=== PATIENT | female | born 1930 | race Two or more races ===

== ENCOUNTER 2018-01-31 18:26 | Inpatient (IN) | payer MEDICARE, MEDICAID ==
[~2018-01-31] VITALS: Ht 149.9 cm; Wt 56.7 kg
--- NOTE | 2018-01-31 18:57 | NUR ---
PT BIB FAMILY TO ER BED 10. HERE FOR MEDICAL EVAL PRIOR TO POSSIBLE GEROPSYCH ADMISSION. PT'S FAMILY STATES PT HERE FOR INCREASING AGITATION, FREQUENT FALLS. GOWNED AND PLACED ON MONITOR. VSS. AWAITING MD MORALES.
--- NOTE | 2018-01-31 19:09 | NUR ---
DR RKAMER AT BEDSIDE FOR EVAL.
[2018-01-31 19:25] LABS: BASOPHILS % (AUTO) 0.6 % (0.0-2.0); EOSINOPHILS % (AUTO) 0.2 % (0.0-6.0); HEMATOCRIT 42 % (33-45); HEMOGLOBIN 13.9 g/dL (11.5-14.8); LYMPHOCYTES # (AUTO) 1.8 /CMM (0.8-4.8); LYMPHOCYTES % (AUTO) 33.5 % (20.0-44.0); MEAN CORPUSCULAR HEMOGLOBIN 32 PG (26.0-33.0); MEAN CORPUSCULAR HGB CONC 33 g/dl (31.0-36.0); MEAN CORPUSCULAR VOLUME 95 fL (82-100); MONOCYTES # (AUTO) 0.5 /CMM (0.1-1.30); MONOCYTES % (AUTO) 8.3 % (2.0-12.0); NEUTROPHILS # (AUTO) 3.1 /CMM (1.8-8.9); NEUTROPHILS % (AUTO) 57.4 % (43.0-81.0); PLATELET COUNT (AUTO) 258 /CMM (150-450); RDW COEFFICIENT OF VARIATION 12.2 (11.5-15.0); RED BLOOD CELL COUNT(AUTO) 4.41 MIL/uL (4.0-5.2); WHITE BLOOD COUNT (AUTO) 5.4 K/uL (4.3-11.0)
[2018-01-31 19:36] LABS: CALCIUM, SERUM 8.7 mg/dL (8.5-10.1); CARBON DIOXIDE 28 mmol/L (21-32); CHLORIDE 104 mmol/L (98-107); CREATININE 0.7 mg/dL (0.6-1.3); GLUCOSE 144 mg/dL (74-106); POTASSIUM 4.2 mmol/L (3.5-5.1); SODIUM SERUM 141 mmol/L (136-145); UREA NITROGEN, BLOOD 9 mg/dL (7-18)
[2018-01-31 19:50] LABS: ALANINE AMINOTRANSFERASE 33 U/L (12-78); ALBUMIN 3.5 g/dL (3.4-5.0); ALKALINE PHOSPHATASE 88 U/L (46-116); ASPARTATE AMINOTRANSFERASE 24 U/L (15-37); BILIRUBIN,DIRECT 0.1 mg/dL (0.0-0.2); BILIRUBIN,TOTAL 0.2 mg/dL (0.2-1.0); TOTAL PROTEIN, SERUM 7.3 g/dL (6.4-8.2)
[2018-01-31 19:52] LABS: ACETAMINOPHEN 0 ug/ml (10-30); ALCOHOL, BLOOD < 3 mg/dL (0-0); SALICYLATE 1.6 mg/dL (2.8-20.0)
[2018-01-31 20:12] LABS: APPEARANCE,URINE TURBID (CLEAR); BILIRUBIN,URINE NEGATIVE (NEGATIVE); BLOOD, URINE 1+ Ery/uL (NEGATIVE); COLOR,URINE YELLOW (YELLOW); KETONES,URINE NEGATIVE (NEGATIVE); LEUKOCYTE ESTERASE ,URINE NEGATIVE (NEGATIVE); NITRITE, URINE NEGATIVE (NEGATIVE); PROTEIN,URINE NEGATIVE (NEGATIVE); UGLUCOSE NEGATIVE (NEGATIVE); UROBILINOGEN,URINE 0.2 EU/dL (0.2)
[2018-01-31 20:17] LABS: BACTERIA,URINE Many /HPF (None Seen)
[2018-01-31 20:18] LABS: SQUAMOUS EPITHELIAL CELL,UR Few /HPF (None Seen)
--- NOTE | 2018-01-31 20:26 | NUR ---
CALLED MAINTENANCE DIRECTOR FOR EVAL - DAGMARY MINING DETAIL DRAFTSPERSON - ETA 1 HOUR
--- NOTE | 2018-01-31 22:47 | NUR ---
patient transported to nona bed by emt without indicent
[2018-01-31 23:15] VITALS: BP 153/78
--- NOTE | 2018-01-31 23:15 | NUR ---
GPS-RN ADMITTED AN 87-Y/O FEMALE, ADMITTED FROM ER INITIALLY FROM HOME. PT IS ON 5150 HOLD FOR DTS/GD. PER HOLD PT HAS BEEN INCREASINGLY AGITATED AND CONFUSED, DECREASE APPETITE, REFUSING MEDICATION, PATIENT HAS BEEN SUICIDAL RECENTLY. PATIENT WAS THREATENING TO HURT HERSELF WITH A KNIFE AND KICKED HER CAREGIVER OUT, NOT SLEEPING FOR THE PAST FEW DAYS. UPON FACE TO FACE ASSESSMENT, PATIENT APPEARS TO BE ALERT, ORIENTED X1, CONFUSED, DISORGANIZED, COOPERATIVE. ROOM CHECKED AT EACH CARE INTERACTION. NO ACUTE DISTRESS NOTED. CONTINENT OF BOWEL AND BLADDER. AMBULATORY WITH ASSISTANCE. BELONGINGS INVENTORIED AND CHECKED FOR CONTRABAND. REVIEWED PATIENT'S RIGHTS. PT IS UNDER THE PSYCHIATRIC CARE OF DR. MCKEON, ORDERS OBTAINED, AND UNDER THE MEDICAL CARE OF RONAN OSEGUERA NOTIFIED OF PT'S ADMISSION. SKIN BODY ASSESSMENT DONE. MRSA SCREENING DONE. BED LOCKED AND PLACED IN LOWEST POSITION. FALL PRECAUTIONS IMPLEMENTED. WILL CONTINUE TO MONITOR Q15MIN ROUNDS FOR SAFETY AND BEHAVIOR. PATIENT'S DAUGHTER TIFFANIE NEWMAN AT BEDSIDE.
[2018-02-01] MEDS ORDERED: ZOLPIDEM TARTRATE 5 MG TABLET PO PRN
[2018-02-01] MEDS ORDERED: MAG HYDROX/AL HYDROX/SIMETH 30 ML UDC PO PRN
[2018-02-01] MEDS ORDERED: ACETAMINOPHEN 325 MG TABLET PO PRN
[2018-02-01] MEDS ORDERED: MAGNESIUM HYDROXIDE 30 ML UDC PO PRN
[2018-02-01] MEDS ORDERED: [UNRECOGNIZED DRUG - CODE] PO (02:59)
[2018-02-01] MEDS ORDERED: DIVA125C5 PO (02:59)
[2018-02-01] MEDS ORDERED: TRAZ-182 PO (02:59)
[2018-02-01] MEDS ORDERED: LIDO700A30 TP (02:59)
[2018-02-01] MEDS ORDERED: MELA5TAB PO (02:59)
[2018-02-01] MEDS ORDERED: DONE5TAB34 PO (02:59)
[2018-02-01] MEDS ORDERED: CYAN100071 PO (02:59)
[2018-02-01] MEDS ORDERED: RISP0.253 PO (02:59)
[2018-02-01] MEDS ORDERED: SERT25TA5 PO (02:59)
[2018-02-01] MEDS ORDERED: FOLI1TAB16 PO (02:59)
[2018-02-01 06:53] LABS: ALANINE AMINOTRANSFERASE 30 U/L (12-78); ALBUMIN 3.2 g/dL (3.4-5.0); ALKALINE PHOSPHATASE 64 U/L (46-116); ASPARTATE AMINOTRANSFERASE 28 U/L (15-37); BILIRUBIN,TOTAL 0.4 mg/dL (0.2-1.0); CALCIUM, SERUM 8.8 mg/dL (8.5-10.1); CARBON DIOXIDE 28 mmol/L (21-32); CHLORIDE 106 mmol/L (98-107); CREATININE 0.5 mg/dL (0.6-1.3); GLUCOSE 95 mg/dL (74-106); POTASSIUM 4.1 mmol/L (3.5-5.1); SODIUM SERUM 142 mmol/L (136-145); TOTAL PROTEIN, SERUM 6.8 g/dL (6.4-8.2); UREA NITROGEN, BLOOD 7 mg/dL (7-18)
[2018-02-01 06:55] LABS: CHOLESTEROL 140 mg/dL (<200); HDL CHOLESTEROL 58 mg/dL (40-60); LDL 76 mg/dL (0-99); TRIGLYCERIDES 62 mg/dL (30-150)
[2018-02-01 08:00] VITALS: BP 150/86
[2018-02-01] MEDS ORDERED: CYAN500T4 PO (08:20)
[2018-02-01] MEDS: LORAZEPAM 1 MG TABLET PO PRN ×2 (11:35→21:02)
--- NOTE | 2018-02-01 14:34 | NUR ---
CALLED [facility] TO CONTACT [facility] FOR MED RECON. NO CALL BACK YET.
[2018-02-01 16:09] VITALS: BP 140/61
[2018-02-01] MEDS: DONEPEZIL 5 MG TABLET PO SCH (21:02)
[2018-02-01] MEDS: TRAZODONE 50 MG TABLET PO SCH (21:02)
--- NOTE | 2018-02-01 21:04 | NUR ---
LORAZEPAM 1 MG TAB 1 PO GIVEN.
--- NOTE | 2018-02-02 06:36 | NUR ---
VITALS AT 0600 THIS MORNIN/77, 66, 18, 98.5 94% ON ROOM AIR.
[2018-02-02 08:00] VITALS: BP 130/59
[2018-02-02] MEDS: VENLAFAXINE XR 37.5 MG CAP.SR.24H PO SCH (09:02)
--- NOTE | 2018-02-02 14:24 | NUR ---
Initial Discharge Plan: Pt currently resides at [address] [place] [id number] alone. Pt's daughter and DPOA, Ursula White ([phone]) stated that she wants the pt to be placed in a care home facility. The pt also state that she would like to be placed in a facility. SW will work with the pt, the DPOA, and the MD regarding appropriate discharge planning. SW will form a safe and proper discharge.
[2018-02-02 16:00] VITALS: BP 116/63
--- NOTE | 2018-02-02 19:52 | NUR ---
GPS RN NOTE: URINE WBC = 3-5H, GRAM (-)>100,000 CFU/ML, NOTIFIED NEEDLE LOOM WEAVER OUMAR WITH NO NEW ORDER. NO ANTIBIOTIC NEEDED. NOTIFIED FAMILY. WILL CONTINUE TO MONITOR.
[2018-02-02 20:00] VITALS: BP 136/77
[2018-02-02] MEDS: DONEPEZIL 5 MG TABLET PO SCH (22:03)
[2018-02-02] MEDS: TRAZODONE 50 MG TABLET PO SCH (22:04)
[2018-02-03 08:00] VITALS: BP 133/80
[2018-02-03] MEDS: VENLAFAXINE XR 37.5 MG CAP.SR.24H PO SCH (08:25)
[2018-02-03 16:00] VITALS: BP 147/71
[2018-02-03 20:00] VITALS: BP 136/62
[2018-02-03] MEDS: TRAZODONE 50 MG TABLET PO SCH (21:42)
[2018-02-03] MEDS: LORAZEPAM 1 MG TABLET PO PRN (21:42)
[2018-02-03] MEDS: DONEPEZIL 5 MG TABLET PO SCH (21:42)
--- NOTE | 2018-02-03 21:46 | NUR ---
UNABLE TO SLEEP, ANXIOUS, ATIVAN 1 MG TAB PO GIVEN.
[2018-02-04 08:00] VITALS: BP 129/74
[2018-02-04] MEDS: VENLAFAXINE XR 37.5 MG CAP.SR.24H PO SCH (09:29)
[2018-02-04 16:05] VITALS: BP 125/66
[2018-02-04] MEDS: LEVOFLOXACIN (500MG) 500 MG TABLET PO SCH (17:32)
[2018-02-04 20:03] VITALS: BP 131/77
[2018-02-04] MEDS: TRAZODONE 50 MG TABLET PO SCH (21:08)
[2018-02-04] MEDS: DONEPEZIL 5 MG TABLET PO SCH (21:08)
[2018-02-05] MEDS: LORAZEPAM 1 MG TABLET PO PRN ×2 (01:46→20:53)
--- NOTE | 2018-02-05 01:47 | NUR ---
GPS-RN PATIENT IS ANXIOUS, UNABLE TO SLEEP. ADMINISTERED ATIVAN 1MG PO ORDERED. WILL CONTINUE TO MONITOR.
[2018-02-05 08:00] VITALS: BP 125/61
[2018-02-05] MEDS: VENLAFAXINE XR 37.5 MG CAP.SR.24H PO SCH (08:05)
[2018-02-05 16:00] VITALS: BP 113/69
[2018-02-05] MEDS: LEVOFLOXACIN (500MG) 500 MG TABLET PO SCH (16:28)
--- NOTE | 2018-02-05 17:14 | NUR ---
YKB-AS-RKCET: CALLED DR. CARDENAS ABOUT MED RECON TO BE DONE. PENDING RETURN PHONE CALL
[2018-02-05 19:29] VITALS: BP 146/72
[2018-02-05] MEDS: DONEPEZIL 5 MG TABLET PO SCH (20:52)
[2018-02-05] MEDS: TRAZODONE 50 MG TABLET PO SCH (20:53)
[2018-02-06 08:00] VITALS: BP 123/64
[2018-02-06] MEDS: VENLAFAXINE XR 37.5 MG CAP.SR.24H PO SCH (08:18)
--- NOTE | 2018-02-06 10:08 | NUR ---
KEON faxed three referrals to [place] [facility] for the pt. SW sent referrals to [facility] (fax number: [phone]), [facility] (fax number: [phone]) and [facility] (fax number: [phone]).
--- NOTE | 2018-02-06 10:12 | NUR ---
KEON called the pt's daughter and DPOA, Ursula White ([phone]), and was told that she wants the pt to be discharged to [facility]. She also informed the SW that because the pt and her sister are only french speaking that she requests the help of KEON Krishnamurthy, when communicating.
--- NOTE | 2018-02-06 10:14 | NUR ---
KEON faxed a referral to [facility] ([phone]) to the fax number: ([phone]).
--- NOTE | 2018-02-06 11:19 | NUR ---
SW called [facility] ([phone]) and was told that the slot supervisor would call the SW back once she reviews the referral.
--- NOTE | 2018-02-06 14:47 | NUR ---
SW called the pt's daughter and DPOA, Ursula White ([phone]), and informed her that the pt was accepted to [facility], [facility] and [facility]. Pt's DPOA stated that she did not like [facility]'s facility and wants to tour [facility] before making a decision. SW informed her that we are still aiming for [facility] since it is the DPOA's first choice and that she will be informed once the SW gets a response from them.
--- NOTE | 2018-02-06 14:53 | NUR ---
SW called [facility] ([phone]) and spoke to Ursula who stated that they do not have any available beds at this time. The SW stated that she will call back tomorrow to see if they have any females discharging.
[2018-02-06 16:02] VITALS: BP 129/64
[2018-02-06] MEDS: LEVOFLOXACIN (500MG) 500 MG TABLET PO SCH (17:17)
[2018-02-06 20:00] VITALS: BP 147/56
[2018-02-06] MEDS: TRAZODONE 50 MG TABLET PO SCH (21:12)
[2018-02-06] MEDS: DONEPEZIL 5 MG TABLET PO SCH (21:12)
[2018-02-06] MEDS ORDERED: DONEPEZIL 5 MG TABLET PO SCH (22:00)
[2018-02-06 23:00] VITALS: BP 132/62
[2018-02-07 08:00] VITALS: BP 115/62
[2018-02-07] MEDS: VENLAFAXINE XR 37.5 MG CAP.SR.24H PO SCH (09:26)
[2018-02-07] MEDS: LIDOCAINE 5% (PATCH) 1 EA PATCH TP SCH (09:26)
[2018-02-07] MEDS: CYANOCOBALAMIN 500 MCG TABLET PO SCH (09:27)
[2018-02-07] MEDS: FOLIC ACID 1 MG TABLET PO SCH (09:27)
--- NOTE | 2018-02-07 10:51 | NUR ---
KEON called the pt's daughter and DPOA, Ursula White ([phone]), and was informed that she toured [facility] and that she approves of the facility and wants the pt to be discharged there. The SW informed her that the pt was accepted and once the psychiatrist decides to discharge the pt that she will be informed.
--- NOTE | 2018-02-07 10:53 | NUR ---
Pt was accepted to [facility].
[2018-02-07 16:26] VITALS: BP 131/53
[2018-02-07] MEDS: LEVOFLOXACIN (500MG) 500 MG TABLET PO SCH (16:31)
[2018-02-07 19:47] VITALS: BP 137/62
[2018-02-07] MEDS: DONEPEZIL 5 MG TABLET PO SCH (21:12)
[2018-02-07] MEDS: TRAZODONE 50 MG TABLET PO SCH (21:13)
[2018-02-08] MEDS: VENLAFAXINE XR 37.5 MG CAP.SR.24H PO SCH (08:39)
[2018-02-08] MEDS: CYANOCOBALAMIN 500 MCG TABLET PO SCH (08:39)
[2018-02-08] MEDS: FOLIC ACID 1 MG TABLET PO SCH (08:40)
[2018-02-08] MEDS: LIDOCAINE 5% (PATCH) 1 EA PATCH TP SCH (08:40)
--- NOTE | 2018-02-08 11:28 | NUR ---
DISCHARGE NOTE: PATIENT LEFT THE UNIT AT 1115 WITH AMBULANCE SERVICE. PATIENT IS MEDICALLY STABLE. DENIES SI/HI DURING DISCHARGE. PSYCHIATRIST DC HOLD, DC ORDER ,AND CONT MEDS. SUPERVISOR PARK WORKERS AWARE AND CONT MEDS. REPORT GIVEN TO CHAPIS AT [facility]. BELONGINGS GIVEN AND WITH PATIENT. EXIT CARE SIGNED AND EXPLAINED TO. SKIN ASSESSMENT AND PICTURES IN CHART. WRIST BAND CUT OFF PATIENT.
--- NOTE | 2018-02-08 15:25 | NUR ---
Discharge Note: Pt was discharged to [facility] (SNF) [place] [address] [place] [address]; ([phone]). Pt was transported via [facility] (Trip #[id number]) at 11AM. Pts daughter and DPOA, Ursula White ([phone]), was informed of this discharge and approved of it as well as the patient herself. Upon discharge, the patient presented in a euthymic mood with a calm affect. Pt stated that she was excited to be going to a nursing facility where one of the other patients was going too due to her needing a support system. Pt denied suicidal and homicidal ideation upon discharge as well as auditory and visual hallucinations. Pt will be under the care of Dr. Cain, located at [address], [place] [address]; and her search manager, Dr. Emmanuel, located at [address], [address], [place] [address], .
== END 2018-02-08 11:15 | DRG 885 ==
LOC: EDSEX 18:26 → ER 18:26 → GPS 23:07
PROVIDERS: ADMIT Psychiatry & Neurology Psychiatry; ATTEND Psychiatry & Neurology Psychiatry
DX: F33.2 Major depressive disorder, recurrent severe without psychotic features (principal); F02.81 Dementia in other diseases classified elsewhere, unspecified severity, with behavioral disturbance; G93.40 Encephalopathy, unspecified; F29 Unspecified psychosis not due to a substance or known physiological condition; Z73.6 Limitation of activities due to disability; G30.9 Alzheimer's disease, unspecified; Z79.899 Other long term (current) drug therapy; R73.9 Hyperglycemia, unspecified; G31.9 Degenerative disease of nervous system, unspecified; Z81.8 Family history of other mental and behavioral disorders
CPT/HCPCS: 36415; 70450-TC; 80048-TC; 80053-TC; 80061-TC; 80076-TC; 80305; 81000-TC; 84443-TC; 85025-TC; 87081-TC; 87086-TC; 87186-TC; A4606; G0480; Z7610

== ENCOUNTER 2018-07-21 23:09 | Inpatient (IN) | payer MEDICARE, MEDICAID ==
[~2018-07-21] VITALS: Ht 157.5 cm; Wt 60.3 kg
[~2018-07-21 23:09] MED LIST: CYAN500T4 PO; DONE5TAB34 PO; FOLI1TAB16 PO; LIDO700A30 TP; [UNRECOGNIZED DRUG - CODE] PO
[2018-07-21] MEDS ORDERED: VENL37.55 PO (23:21)
[2018-07-21] MEDS ORDERED: DOCU100C36 PO (23:21)
[2018-07-21] MEDS ORDERED: TRAZ-182 PO (23:21)
[2018-07-21] MEDS ORDERED: LORA-258 PO (23:21)
[2018-07-21] MEDS ORDERED: FOLI0.4T2 PO (23:21)
[2018-07-21 23:53] LABS: BASOPHILS # (AUTO) 0.1 /CMM (0.0-0.2); BASOPHILS % (AUTO) 1.1 % (0.0-2.0); EOSINOPHILS % (AUTO) 0.7 % (0.0-6.0); HEMATOCRIT 43 % (33-45); HEMOGLOBIN 14.3 g/dL (11.5-14.8); LYMPHOCYTES # (AUTO) 2.3 /CMM (0.8-4.8); LYMPHOCYTES % (AUTO) 38.2 % (20.0-44.0); MEAN CORPUSCULAR HGB CONC 34 g/dl (31.0-36.0); MEAN CORPUSCULAR VOLUME 95 fL (82-100); MONOCYTES # (AUTO) 0.3 /CMM (0.1-1.30); MONOCYTES % (AUTO) 5.2 % (2.0-12.0); NEUTROPHILS # (AUTO) 3.3 /CMM (1.8-8.9); NEUTROPHILS % (AUTO) 54.8 % (43.0-81.0); PLATELET COUNT (AUTO) 229 /CMM (150-450); RED BLOOD CELL COUNT(AUTO) 4.49 MIL/uL (4.0-5.2); WHITE BLOOD COUNT (AUTO) 6.1 K/uL (4.3-11.0)
[2018-07-21 23:54] LABS: APPEARANCE,URINE SL CLOUDY (CLEAR); BILIRUBIN,URINE NEGATIVE (NEGATIVE); BLOOD, URINE 1+ Ery/uL (NEGATIVE); COLOR,URINE YELLOW (YELLOW); KETONES,URINE NEGATIVE (NEGATIVE); LEUKOCYTE ESTERASE ,URINE 2+ (NEGATIVE); NITRITE, URINE POSITIVE (NEGATIVE); PH,URINE 6.5 (5.0-8.0); PROTEIN,URINE NEGATIVE (NEGATIVE); UGLUCOSE NEGATIVE (NEGATIVE); UROBILINOGEN,URINE 0.2 EU/dL (0.2)
[2018-07-22] LABS: BACTERIA,URINE Moderate /HPF (None Seen); SQUAMOUS EPITHELIAL CELL,UR Few /HPF (None Seen)
[2018-07-22 00:08] LABS: SERUM AMMONIA 15 umol/L (11-32)
[2018-07-22 00:11] LABS: CALCIUM, SERUM 8.8 mg/dL (8.5-10.1); CARBON DIOXIDE 30 mmol/L (21-32); CHLORIDE 104 mmol/L (98-107); CREATININE 0.6 mg/dL (0.6-1.3); GLUCOSE 128 mg/dL (74-106); POTASSIUM 4.3 mmol/L (3.5-5.1); SODIUM SERUM 142 mmol/L (136-145); UREA NITROGEN, BLOOD 10 mg/dL (7-18)
[2018-07-22 00:20] LABS: ALANINE AMINOTRANSFERASE 17 U/L (12-78); ALBUMIN 3.6 g/dL (3.4-5.0); ALCOHOL, BLOOD < 3 mg/dL (0-0); ALKALINE PHOSPHATASE 78 U/L (46-116); ASPARTATE AMINOTRANSFERASE 22 U/L (15-37); BILIRUBIN,DIRECT 0.1 mg/dL (0.0-0.2); BILIRUBIN,TOTAL 0.3 mg/dL (0.2-1.0); THYROID STIMULATING HORMONE 1.719 uIU/mL (0.358-3.74); TOTAL PROTEIN, SERUM 7.2 g/dL (6.4-8.2)
[2018-07-22 00:22] LABS: ACETAMINOPHEN 0 ug/ml (10-30); SALICYLATE 1.9 mg/dL (2.8-20.0)
[2018-07-22] MEDS ORDERED: CEPHALEXIN MONOHYDRATE 500 MG CAPSULE PO ONE (02:14)
[2018-07-22 02:30] VITALS: BP 148/76
[2018-07-22] MEDS ORDERED: MAGNESIUM HYDROXIDE 30 ML UDC PO PRN (02:30)
[2018-07-22] MEDS ORDERED: MAG HYDROX/AL HYDROX/SIMETH 30 ML UDC PO PRN (02:30)
[2018-07-22] MEDS ORDERED: ZOLPIDEM TARTRATE 5 MG TABLET PO PRN (02:30)
[2018-07-22] MEDS ORDERED: ACETAMINOPHEN 325 MG TABLET PO PRN (02:30)
[2018-07-22] MEDS ORDERED: LORAZEPAM 0.5 MG TABLET PO PRN (02:30)
[2018-07-22] MEDS: CEPHALEXIN MONOHYDRATE 250 MG CAPSULE PO SCH ×2 (02:31→11:00)
[2018-07-22 06:46] VITALS: BP 148/76
[2018-07-22 08:00] VITALS: BP 143/58
[2018-07-22] MEDS: FOLIC ACID 1 MG TABLET PO SCH (10:46)
[2018-07-22] MEDS: CYANOCOBALAMIN 500 MCG TABLET PO SCH (10:46)
[2018-07-22] MEDS: CEPHALEXIN MONOHYDRATE 500 MG CAPSULE PO SCH ×3 (11:02→22:36)
[2018-07-22] MEDS: VENLAFAXINE XR 75 MG CAP.SR.24H PO SCH (12:56)
[2018-07-22 16:00] VITALS: BP 111/80
[2018-07-22 20:00] VITALS: BP 153/84
[2018-07-22 20:05] VITALS: BP 153/84
[2018-07-22] MEDS: MEMANTINE HCL 5 MG TABLET PO SCH ×2 (21:00→22:38)
[2018-07-22] MEDS: DONEPEZIL 5 MG TABLET PO SCH ×2 (22:00→22:38)
[2018-07-23 06:37] LABS: BASOPHILS % (AUTO) 0.8 % (0.0-2.0); EOSINOPHILS % (AUTO) 0.8 % (0.0-6.0); HEMATOCRIT 45 % (33-45); HEMOGLOBIN 15.1 g/dL (11.5-14.8); LYMPHOCYTES % (AUTO) 37.4 % (20.0-44.0); MEAN CORPUSCULAR HGB CONC 34 g/dl (31.0-36.0); MEAN CORPUSCULAR VOLUME 95 fL (82-100); MONOCYTES # (AUTO) 0.3 /CMM (0.1-1.30); MONOCYTES % (AUTO) 4.9 % (2.0-12.0); NEUTROPHILS % (AUTO) 56.1 % (43.0-81.0); PLATELET COUNT (AUTO) 266 /CMM (150-450); WHITE BLOOD COUNT (AUTO) 5.3 K/uL (4.3-11.0)
[2018-07-23 06:45] LABS: CHOLESTEROL 181 mg/dL (<200); HDL CHOLESTEROL 59 mg/dL (40-60); LDL 111 mg/dL (0-99); TRIGLYCERIDES 124 mg/dL (30-150)
[2018-07-23 06:47] LABS: ALANINE AMINOTRANSFERASE 18 U/L (12-78); ALBUMIN 3.8 g/dL (3.4-5.0); ALKALINE PHOSPHATASE 72 U/L (46-116); ASPARTATE AMINOTRANSFERASE 23 U/L (15-37); BILIRUBIN,TOTAL 0.7 mg/dL (0.2-1.0); CALCIUM, SERUM 8.7 mg/dL (8.5-10.1); CARBON DIOXIDE 31 mmol/L (21-32); CHLORIDE 104 mmol/L (98-107); CREATININE 0.6 mg/dL (0.6-1.3); GLUCOSE 125 mg/dL (74-106); SODIUM SERUM 142 mmol/L (136-145); TOTAL PROTEIN, SERUM 7.4 g/dL (6.4-8.2); UREA NITROGEN, BLOOD 11 mg/dL (7-18)
[2018-07-23 08:00] VITALS: BP 131/61
[2018-07-23] MEDS: CYANOCOBALAMIN 500 MCG TABLET PO SCH (08:26)
[2018-07-23] MEDS: CEPHALEXIN MONOHYDRATE 500 MG CAPSULE PO SCH ×2 (08:26→21:28)
[2018-07-23] MEDS: MEMANTINE HCL 5 MG TABLET PO SCH ×2 (08:26→21:29)
[2018-07-23] MEDS: FOLIC ACID 1 MG TABLET PO SCH (08:27)
[2018-07-23] MEDS: DOCUSATE SODIUM 100 MG CAPSULE PO SCH (08:29)
[2018-07-23] MEDS: VENLAFAXINE XR 75 MG CAP.SR.24H PO SCH (12:28)
[2018-07-23 16:00] VITALS: BP 123/54
[2018-07-23 20:02] VITALS: BP 144/73
[2018-07-23] MEDS: DONEPEZIL 5 MG TABLET PO SCH (21:29)
[2018-07-23] MEDS: ATORVASTATIN 10 MG TABLET PO SCH (21:29)
[2018-07-24 08:00] VITALS: BP 135/67
[2018-07-24] MEDS: FOLIC ACID 1 MG TABLET PO SCH (09:54)
[2018-07-24] MEDS: CYANOCOBALAMIN 500 MCG TABLET PO SCH (09:55)
[2018-07-24] MEDS: MEMANTINE HCL 5 MG TABLET PO SCH ×2 (09:55→21:13)
[2018-07-24] MEDS: DOCUSATE SODIUM 100 MG CAPSULE PO SCH (09:55)
[2018-07-24] MEDS: CEPHALEXIN MONOHYDRATE 500 MG CAPSULE PO SCH ×2 (09:55→21:13)
[2018-07-24] MEDS: VENLAFAXINE XR 75 MG CAP.SR.24H PO SCH (12:30)
[2018-07-24 16:00] VITALS: BP 149/93
[2018-07-24] MEDS: ATORVASTATIN 10 MG TABLET PO SCH (21:13)
[2018-07-24] MEDS: DONEPEZIL 5 MG TABLET PO SCH (21:13)
[2018-07-24 21:21] VITALS: BP 157/79
[2018-07-25 08:00] VITALS: BP 150/69
[2018-07-25] MEDS: DOCUSATE SODIUM 100 MG CAPSULE PO SCH (09:41)
[2018-07-25] MEDS: FOLIC ACID 1 MG TABLET PO SCH (09:41)
[2018-07-25] MEDS: CEPHALEXIN MONOHYDRATE 500 MG CAPSULE PO SCH ×2 (09:41→21:07)
[2018-07-25] MEDS: MEMANTINE HCL 5 MG TABLET PO SCH ×2 (09:41→21:07)
[2018-07-25] MEDS: CYANOCOBALAMIN 500 MCG TABLET PO SCH (09:41)
[2018-07-25] MEDS: VENLAFAXINE XR 75 MG CAP.SR.24H PO SCH (13:21)
[2018-07-25 16:00] VITALS: BP 126/55
[2018-07-25 20:21] VITALS: BP 125/58
[2018-07-25] MEDS: DONEPEZIL 5 MG TABLET PO SCH (21:07)
[2018-07-25] MEDS: ATORVASTATIN 10 MG TABLET PO SCH (21:07)
[2018-07-26 08:00] VITALS: BP 129/62
[2018-07-26] MEDS: CYANOCOBALAMIN 500 MCG TABLET PO SCH (09:34)
[2018-07-26] MEDS: FOLIC ACID 1 MG TABLET PO SCH (09:34)
[2018-07-26] MEDS: CEPHALEXIN MONOHYDRATE 500 MG CAPSULE PO SCH ×2 (09:34→21:20)
[2018-07-26] MEDS: MEMANTINE HCL 5 MG TABLET PO SCH ×2 (09:34→21:20)
[2018-07-26] MEDS: DOCUSATE SODIUM 100 MG CAPSULE PO SCH (09:34)
[2018-07-26] MEDS: VENLAFAXINE XR 75 MG CAP.SR.24H PO SCH (12:45)
[2018-07-26 16:00] VITALS: BP 133/64
[2018-07-26] MEDS ORDERED: LORAZEPAM 1 MG TABLET PO STA (19:17)
[2018-07-26] MEDS ORDERED: LORAZEPAM 1 MG TABLET SL PRN (19:30)
[2018-07-26 20:00] VITALS: BP 130/70
[2018-07-26] MEDS: DONEPEZIL 5 MG TABLET PO SCH (21:20)
[2018-07-26] MEDS: ATORVASTATIN 10 MG TABLET PO SCH (21:20)
[2018-07-27 08:00] VITALS: BP 126/69
[2018-07-27] MEDS: MEMANTINE HCL 5 MG TABLET PO SCH (09:38)
[2018-07-27] MEDS: CEPHALEXIN MONOHYDRATE 500 MG CAPSULE PO SCH (09:38)
[2018-07-27] MEDS: CYANOCOBALAMIN 500 MCG TABLET PO SCH (09:38)
[2018-07-27] MEDS: DOCUSATE SODIUM 100 MG CAPSULE PO SCH (09:38)
[2018-07-27] MEDS: FOLIC ACID 1 MG TABLET PO SCH (09:38)
== END 2018-07-27 12:00 | DRG 885 ==
LOC: ER 23:10 → GPS 07-22 01:37
PROVIDERS: ADMIT Psychiatry & Neurology Psychiatry; ATTEND Psychiatry & Neurology Psychiatry
DX: F33.2 Major depressive disorder, recurrent severe without psychotic features (principal); G93.41 Metabolic encephalopathy; N39.0 Urinary tract infection, site not specified; F29 Unspecified psychosis not due to a substance or known physiological condition; Z79.899 Other long term (current) drug therapy; G30.9 Alzheimer's disease, unspecified; F02.80 Dementia in other diseases classified elsewhere, unspecified severity, without behavioral disturbance, psychotic disturbance, mood disturbance, and anxiety; F41.9 Anxiety disorder, unspecified; E78.5 Hyperlipidemia, unspecified; D64.9 Anemia, unspecified; B96.89 Other specified bacterial agents as the cause of diseases classified elsewhere; L02.92 Furuncle, unspecified
CPT/HCPCS: 36415; 70450-TC; 71045-TC; 80048-TC; 80053-TC; 80061-TC; 80076-TC; 80305; 81000-TC; 82140-TC; 83605-TC; 84443-TC; 84484-TC; 85025-TC; 85730-TC; 87040-TC; 87081-TC; 87086-TC; 87186-TC; G0480

== ENCOUNTER 2018-10-05 18:53 | Inpatient (IN) | payer MEDICARE, MEDICAID ==
[~2018-10-05] VITALS: Ht 154.9 cm; Wt 57.2 kg
[~2018-10-05 18:53] MED LIST changes: +DOCU100C36 PO; +FOLI0.4T2 PO; -FOLI1TAB16 PO; -LIDO700A30 TP; +LORA-258 PO; +TRAZ-182 PO; +VENL37.55 PO; -[UNRECOGNIZED DRUG - CODE] PO
--- NOTE | 2018-10-05 19:15 | NUR ---
PT BIBFAMILY REQUESTING PSYCH EVAL BEFORE RETURNING TO FACILITY. PER FAMILY, PT LEFT FACILITY WITHOUT NOTICE EARLIER TODAY AND WAS FOUND AT [facility] [place]. PT TELLS FAMILY MEMBERS "I'M GOING TO HURT THE LADY WHEN I GO BACK THERE". PT APPEARS CALM. VITAL SIGNS STABLE. ABLE TO AMBULATE STEADY GAIT. NO ACUTE DISTRESS NOTED AT THIS TIME. FAMILY AT BEDSIDE. WILL CONTINUE TO MONITOR
--- NOTE | 2018-10-05 19:45 | NUR ---
PT RETURNED FROM CT
--- NOTE | 2018-10-05 19:46 | NUR ---
SPOKE WITH ELSIE FROM [facility] [place]. PT HAS BEEN AGGRESSIVE TOWARDS STAFF MEMBERS AND DENYING CARE PAST FEW DAYS. REQUESTING MEDICAL CLEARANCE BEFORE BEING RETURNING TO FACILITY.
--- NOTE | 2018-10-05 19:50 | NUR ---
PT UNABLE TO PROVIDE URINE SAMPLE AT THIS TIME, AWARE
--- NOTE | 2018-10-05 19:59 | NUR ---
COMPANY LABORER AT [facility] FOR BLOOD DRAW
--- NOTE | 2018-10-05 20:06 | NUR ---
PROVIDED PT WITH SANDWICH, SNACKS, AND WATER PER FAMILY REQUEST
[2018-10-05 20:09] LABS: BASOPHILS % (AUTO) 0.4 % (0.0-2.0); HEMATOCRIT 44 % (33-45); LYMPHOCYTES # (AUTO) 1.2 /CMM (0.8-4.8); LYMPHOCYTES % (AUTO) 16.6 % (20.0-44.0); MEAN CORPUSCULAR HGB CONC 34 g/dl (31.0-36.0); MEAN CORPUSCULAR VOLUME 97 fL (82-100); MONOCYTES # (AUTO) 0.5 /CMM (0.1-1.30); MONOCYTES % (AUTO) 6.7 % (2.0-12.0); NEUTROPHILS # (AUTO) 5.6 /CMM (1.8-8.9); NEUTROPHILS % (AUTO) 76.3 % (43.0-81.0); PLATELET COUNT (AUTO) 210 /CMM (150-450); RED BLOOD CELL COUNT(AUTO) 4.59 MIL/uL (4.0-5.2); WHITE BLOOD COUNT (AUTO) 7.4 K/uL (4.3-11.0)
[2018-10-05 20:22] LABS: CALCIUM, SERUM 9.1 mg/dL (8.5-10.1); CARBON DIOXIDE 28 mmol/L (21-32); CHLORIDE 108 mmol/L (98-107); CREATININE 0.7 mg/dL (0.6-1.3); GLUCOSE 118 mg/dL (74-106); SODIUM SERUM 146 mmol/L (136-145); UREA NITROGEN, BLOOD 19 mg/dL (7-18)
[2018-10-05 20:23] LABS: ALCOHOL, BLOOD < 3 mg/dL (0-0)
--- NOTE | 2018-10-05 20:40 | NUR ---
PT ABLE TO AMBULATE TO RESTROOM WITH ASSISTANCE
[2018-10-05 20:47] LABS: THYROID STIMULATING HORMONE 0.602 uIU/mL (0.358-3.74)
--- NOTE | 2018-10-05 20:55 | NUR ---
PT UNABLE TO PROVIDE URINE SAMPLE AT THIS TIME. AWARE. WILL PROVIDE WATER TO PT
--- NOTE | 2018-10-05 21:08 | NUR ---
URINE COLLECTED AND SENT TO LAB
[2018-10-05 21:23] LABS: APPEARANCE,URINE Slightly Cloudy (CLEAR); BILIRUBIN,URINE Negative (NEGATIVE); BLOOD, URINE Moderate Ery/uL (NEGATIVE); COLOR,URINE Yellow (YELLOW); KETONES,URINE >=160 (NEGATIVE); LEUKOCYTE ESTERASE ,URINE Small (NEGATIVE); NITRITE, URINE Positive (NEGATIVE); PH,URINE 5.5 (5.0-8.0); PROTEIN,URINE Trace mg/dl (NEGATIVE); UGLUCOSE Negative (NEGATIVE)
[2018-10-05 21:29] LABS: SQUAMOUS EPITHELIAL CELL,UR Few /HPF (None Seen)
[2018-10-05 21:30] LABS: BACTERIA,URINE 2+ /HPF (None Seen)
--- NOTE | 2018-10-05 22:09 | NUR ---
CALLED CYBER SOFTWARE ENGINEER TELECOMMUNICATIONS PROFESSIONAL YVONNE PATRICIA VOICEMAIL.
--- NOTE | 2018-10-05 22:28 | NUR ---
BELEM PIERCE [id number]
--- NOTE | 2018-10-05 23:11 | NUR ---
PENNIE PATRICIA AT BEDSIDE FOR EVALUATION
--- NOTE | 2018-10-05 23:48 | NUR ---
GAVE REPORT TO HAIDER WALKER FOR GLENN
--- NOTE | 2018-10-06 00:35 | NUR ---
TRANSFERRED PT VIA [facility]
[2018-10-06] MEDS ORDERED: MAGNESIUM HYDROXIDE 30 ML UDC PO PRN (01:00)
[2018-10-06] MEDS ORDERED: MAG HYDROX/AL HYDROX/SIMETH 30 ML UDC PO PRN (01:00)
[2018-10-06] MEDS ORDERED: ACETAMINOPHEN 325 MG TABLET PO PRN (01:00)
[2018-10-06 02:49] VITALS: BP 123/70
--- NOTE | 2018-10-06 03:00 | NUR ---
ADMISSION NOTES: ADMITTED THIS 88 Y/O FEMALE PATIENT ADMIT FROM [facility] ER/INTIALLY FROM NURSING FAC[facility] , PT IS ON 5150 HOLD FOR GRAVELY DISABLE DANGER TO OTHERS , PER HOLD PT. AGGERSSIVE, AGITATED, WANDERED OUT OF HER CARE FACILITY , UPON FACE TO FACE ASSESSMENT PATIENT IS A&O X1 ,2 UNCOOPERTIVE, DISORGINZE, EASILY GETS AGITATED, PT. IS POOR HISTORIAN, POOR INSIGHT ,POOR JUDGEMENT , POOR HYGINE , PT. REFUSED TO TAKE SHOWER AT THIS TIME , AND PT. REFUSED TO SIGN ADMISSION PAPERS ,V/S MD BAO AWARE AND NOTIFIED OF THE ADMISSION, PT. REFUSED SKIN ASSESSMENT , ENCOURAGED PT. VERBALIZED ANY FEELING CONCERN TO STAFF, ORIENT TO UNIT POLICY, WILL CONTINUE TO MONITOR FOR Q15 SAFETY AND BEHAVIOR.
[2018-10-06 08:00] VITALS: BP 124/79
[2018-10-06] MEDS ORDERED: ATOR10TA PO (12:37)
[2018-10-06] MEDS ORDERED: RISP0.253 PO (12:37)
[2018-10-06] MEDS ORDERED: VENL75CA56 PO (12:37)
[2018-10-06] MEDS ORDERED: CLON1TAB12 PO (12:37)
[2018-10-06] MEDS ORDERED: MEMA5TAB PO (12:37)
[2018-10-06] MEDS: DIVALPROEX SODIUM 250 MG TABLET.DR PO SCH ×2 (13:25→21:06)
[2018-10-06 16:00] VITALS: BP 121/75
--- NOTE | 2018-10-06 20:00 | NUR ---
GPS RN NOTES: PT. REFUSED VITAL SIGNS , ENCOURAGED EXPLINED RISKS AND BENEFITS ,BUT STILL REFUSED.
[2018-10-06] MEDS: LORAZEPAM 0.5 MG TABLET PO PRN (20:01)
[2018-10-06] MEDS: CEPHALEXIN MONOHYDRATE 500 MG CAPSULE PO SCH (21:06)
[2018-10-06] MEDS: DONEPEZIL 5 MG TABLET PO SCH (21:06)
[2018-10-06] MEDS: MEMANTINE HCL 5 MG TABLET PO SCH (21:07)
[2018-10-06] MEDS: TRAZODONE 50 MG TABLET PO SCH (21:07)
[2018-10-06] MEDS: ATORVASTATIN 10 MG TABLET PO SCH (21:08)
[2018-10-07] MEDS: ZOLPIDEM TARTRATE 5 MG TABLET PO PRN (01:25)
[2018-10-07 08:00] VITALS: BP 118/60
[2018-10-07 08:54] LABS: BASOPHILS % (AUTO) 0.8 % (0.0-2.0); EOSINOPHILS % (AUTO) 2.4 % (0.0-6.0); HEMATOCRIT 43 % (33-45); HEMOGLOBIN 14.3 g/dL (11.5-14.8); LYMPHOCYTES # (AUTO) 2.2 /CMM (0.8-4.8); LYMPHOCYTES % (AUTO) 42.1 % (20.0-44.0); MEAN CORPUSCULAR HGB CONC 34 g/dl (31.0-36.0); MEAN CORPUSCULAR VOLUME 96 fL (82-100); MONOCYTES # (AUTO) 0.4 /CMM (0.1-1.30); MONOCYTES % (AUTO) 7.3 % (2.0-12.0); NEUTROPHILS # (AUTO) 2.5 /CMM (1.8-8.9); NEUTROPHILS % (AUTO) 47.4 % (43.0-81.0); PLATELET COUNT (AUTO) 214 /CMM (150-450); RED BLOOD CELL COUNT(AUTO) 4.41 MIL/uL (4.0-5.2); WHITE BLOOD COUNT (AUTO) 5.3 K/uL (4.3-11.0)
[2018-10-07 08:58] LABS: CHOLESTEROL 130 mg/dL (<200); HDL CHOLESTEROL 62 mg/dL (40-60); LDL 62 mg/dL (0-99); TRIGLYCERIDES 73 mg/dL (30-150)
[2018-10-07 09:08] LABS: ALANINE AMINOTRANSFERASE 21 U/L (12-78); ALBUMIN 3.7 g/dL (3.4-5.0); ALKALINE PHOSPHATASE 69 U/L (46-116); ASPARTATE AMINOTRANSFERASE 29 U/L (15-37); BILIRUBIN,TOTAL 0.7 mg/dL (0.2-1.0); CALCIUM, SERUM 8.8 mg/dL (8.5-10.1); CARBON DIOXIDE 25 mmol/L (21-32); CHLORIDE 106 mmol/L (98-107); CREATININE 0.7 mg/dL (0.6-1.3); GLUCOSE 139 mg/dL (74-106); POTASSIUM 4.1 mmol/L (3.5-5.1); SODIUM SERUM 143 mmol/L (136-145); TOTAL PROTEIN, SERUM 7.4 g/dL (6.4-8.2); UREA NITROGEN, BLOOD 14 mg/dL (7-18)
[2018-10-07] MEDS: MEMANTINE HCL 5 MG TABLET PO SCH ×2 (09:13→21:00)
[2018-10-07] MEDS: VENLAFAXINE XR 75 MG CAP.SR.24H PO SCH (09:13)
[2018-10-07] MEDS: CEPHALEXIN MONOHYDRATE 500 MG CAPSULE PO SCH ×2 (09:13→21:00)
[2018-10-07] MEDS: DIVALPROEX SODIUM 250 MG TABLET.DR PO SCH ×2 (09:13→21:00)
[2018-10-07 16:00] VITALS: BP 149/77
[2018-10-07 20:13] VITALS: BP 142/72
[2018-10-07] MEDS: TRAZODONE 50 MG TABLET PO SCH (22:00)
[2018-10-07] MEDS: ATORVASTATIN 10 MG TABLET PO SCH (22:00)
[2018-10-07] MEDS: DONEPEZIL 5 MG TABLET PO SCH (22:00)
--- NOTE | 2018-10-07 22:23 | NUR ---
GPS RN NOTES: PATIENT STAYED IN THE ROOM, WHEN OFFERED HER NIGHT TIME MEDICATIONS, PATIENT STARTED SCREAMING AND YELLING IN YORUBA AT THE NURSE. REDIRECTED THE PATIENT WITH THE HELP OF THE BODY AND FRAME TECHNICIAN BUT THE PATIENT SCREAMED EVEN LOUDER AND KEPT SCREAMING "PULICIA". PATIENT REFUSED HER NIGHT TIME MEDICATIONS. PATIENT DOES NOT WANT TO LISTEN TO THE NURSE'S EXPLANATION.WILL MONITOR PATIENT'S MOOD AND BEHAVIOR.
[2018-10-08 08:00] VITALS: BP 148/67
[2018-10-08] MEDS: MEMANTINE HCL 5 MG TABLET PO SCH ×2 (08:30→21:08)
[2018-10-08] MEDS: VENLAFAXINE XR 75 MG CAP.SR.24H PO SCH (08:30)
[2018-10-08] MEDS: DIVALPROEX SODIUM 250 MG TABLET.DR PO SCH ×2 (08:30→21:08)
[2018-10-08] MEDS: CEPHALEXIN MONOHYDRATE 500 MG CAPSULE PO SCH ×2 (08:30→21:08)
--- NOTE | 2018-10-08 10:14 | NUR ---
KEON contacted [facility] [address] [place] [address] and spoke with Ana, higher education administrator who stated pt is able to return once stable for discharge.
--- NOTE | 2018-10-08 11:19 | NUR ---
SW contacted pts daughter Ursula [phone] to discuss pts treatment and discharge plan. Daughter stated that she is unsure if pt will return back to Assisted Living or will need SNF placement as pot has been combative and aggressive with Assisted Living staff and also refusing to take medication. Daughter informed SW that pt needs a psychiatrist and asked of pts current psychiatrist will be willing to continue seeing her outside of the hospital. KEON informed her that Dr. Rhoades was currently on vacation but will be in tomorrow and informed her she would discuss placement and medication compliance with her. Daughter agreed and also stated she was pts conservator SW asked if she was Probate or LPS and daughter stated she would email the forms to KEON to determine which type of conservatorship she had because she was unsure.
--- NOTE | 2018-10-08 11:53 | NUR ---
INITIAL DISCHARGE PLAN: Per daughter Ursula [phone] she wishes for pt to return to [facility] [address] [place], [place] [address] . SW will help form a safe and proper discharge in collaboration with MD and pts daughter.
--- NOTE | 2018-10-08 14:59 | NUR ---
Group Note: SW encouraged the pt to participate in group therapy and she stated that she did not want to and wanted to remain in her room with her roommate.
[2018-10-08 16:00] VITALS: BP 157/94
--- NOTE | 2018-10-08 16:19 | NUR ---
SW contacted pts daughter Ursula [phone] and confirmed SW received DPOA and Probate conservatorship paperwork. SW explained the difference between LPS and Probate conservatorship as daughter kept saying she was pts conservatorship and was able to make decisions for pt including the decision to have pt take her medication. After explaining the to daughter that she was unable to make such decision due to her not being pts LPS conservatorship pt understood the difference and stated she would take oit day by day and determine if pt needs SNF placement or if she will return to the assisted living.
[2018-10-08 20:04] VITALS: BP 123/60
[2018-10-08] MEDS: DONEPEZIL 5 MG TABLET PO SCH (21:08)
[2018-10-08] MEDS: TRAZODONE 50 MG TABLET PO SCH (21:08)
[2018-10-08] MEDS: ATORVASTATIN 10 MG TABLET PO SCH (21:08)
[2018-10-09 08:00] VITALS: BP 102/62
[2018-10-09] MEDS: CEPHALEXIN MONOHYDRATE 500 MG CAPSULE PO SCH ×2 (08:40→20:10)
[2018-10-09] MEDS: VENLAFAXINE XR 75 MG CAP.SR.24H PO SCH (08:40)
[2018-10-09] MEDS: DIVALPROEX SODIUM 250 MG TABLET.DR PO SCH ×2 (08:40→20:10)
[2018-10-09] MEDS: MEMANTINE HCL 5 MG TABLET PO SCH ×2 (08:40→20:13)
[2018-10-09 16:00] VITALS: BP 140/73
--- NOTE | 2018-10-09 16:21 | NUR ---
Group Note: SW encouraged the pt to participate in group therapy and she stated that she did not want to and wanted to remain in her room reading a magazine.
[2018-10-09 19:57] VITALS: BP 151/55
[2018-10-09] MEDS: DONEPEZIL 5 MG TABLET PO SCH (20:10)
[2018-10-09] MEDS: TRAZODONE 50 MG TABLET PO SCH (20:10)
[2018-10-09] MEDS: LORAZEPAM 0.5 MG TABLET PO PRN (20:10)
[2018-10-09] MEDS: ATORVASTATIN 10 MG TABLET PO SCH (20:11)
[2018-10-09] MEDS: risperiDONE 0.25 MG TABLET PO SCH (22:13)
[2018-10-10 08:00] VITALS: BP 142/94
[2018-10-10] MEDS: DIVALPROEX SODIUM 250 MG TABLET.DR PO SCH ×2 (09:20→21:45)
[2018-10-10] MEDS: MEMANTINE HCL 5 MG TABLET PO SCH ×2 (09:20→21:45)
[2018-10-10] MEDS: CEPHALEXIN MONOHYDRATE 500 MG CAPSULE PO SCH ×2 (09:20→21:46)
[2018-10-10] MEDS: VENLAFAXINE XR 75 MG CAP.SR.24H PO SCH (09:21)
--- NOTE | 2018-10-10 14:39 | NUR ---
KEON met with pts daughter Ursula [phone] on this present day and informed her that Dr. Rhoades needs to contact [facility] to ask if she can follow pt as facility already has a psychiatrist that sees pts. Daughter stated that she really wants Dr. Rhoades to see pt outside of the hospital and also stated that she would call the facility to also advocate for Dr. Rhoades to see pt at the facility.
--- NOTE | 2018-10-10 15:45 | NUR ---
Group Note: Pt attended group and was engaged but the pt did not participate. She stated that she did not want to say anything about the topic that was presented even after the SW altered the topic for her.
[2018-10-10 16:00] VITALS: BP 137/61
--- NOTE | 2018-10-10 19:30 | NUR ---
GPS RN NOTE, RECEIVED PATIENT AWAKE AND IN ROOM NO S/S OR COMPLAINTS OF PAIN AT THIS TIME. PATIENT IS DISPLAYING NO S/S OF APPARENT DISTRESS AT THIS TIME. PATIENT BREATHING IS UNLABORED WITH EQUAL RISE AND FALL OF THE CHEST. PATIENT IS ALERT AND ORIENTED X 2 ON ROOM AIR WITH A SPO2 OF 95%. PATIENT IS CONFUSED, DISORGANIZED, ANXIOUS, COOPERATIVE, FOCUSED ON GOING HOME, AND NEEDS REORIENTATION. PATIENT DENIES SUICIDE AND HOMICIDAL IDEATIONS AT THIS TIME. PATIENT ASSISTED WITH TURNING AND REPOSITIONING Q2HR AND PRN FOR COMFORT AND CIRCULATION. PATIENT HAS NO NEEDS AT THIS TIME. PATIENT EDUCATED ON THE USE OF THE CALL GARDNER. PATIENT BED SIDE RAILS ARE UP X 2 FOR SAFETY, BED IS LOCKED AND LOW. WILL CONTINUE TO MONITOR AND MAINTAIN SAFETY Q15 MIN WITH THE HELP OF STAFF.
[2018-10-10 20:06] VITALS: BP 153/74
[2018-10-10] MEDS: TRAZODONE 50 MG TABLET PO SCH (21:45)
[2018-10-10] MEDS: DONEPEZIL 5 MG TABLET PO SCH (21:45)
[2018-10-10] MEDS: risperiDONE 0.25 MG TABLET PO SCH (21:45)
[2018-10-10] MEDS: ATORVASTATIN 10 MG TABLET PO SCH (21:45)
[2018-10-11 08:00] VITALS: BP 147/67
[2018-10-11] MEDS: DIVALPROEX SODIUM 250 MG TABLET.DR PO SCH ×3 (08:53→21:42)
[2018-10-11] MEDS: VENLAFAXINE XR 75 MG CAP.SR.24H PO SCH (08:53)
[2018-10-11] MEDS: CEPHALEXIN MONOHYDRATE 500 MG CAPSULE PO SCH ×3 (08:53→21:42)
[2018-10-11] MEDS: MEMANTINE HCL 5 MG TABLET PO SCH ×3 (08:53→21:42)
--- NOTE | 2018-10-11 15:45 | NUR ---
GROUP NOTE: SW prompted pt to participate in group therapy, pt stated in Cypriot, "I don't want to be in there with those people, leave me alone."
[2018-10-11 16:00] VITALS: BP 121/63
--- NOTE | 2018-10-11 18:12 | NUR ---
RN GPS NOTES PT IN HER ROOM, ALERT, CALM AND COOPERATIVE WITH CARE, AMBULATES WITH STEADY GAIT, INTERACTS WITH STAFF WELL, SAFETY PRECAUTIONS OBSERVED.
[2018-10-11 20:00] VITALS: BP 117/74
[2018-10-11] MEDS: TRAZODONE 50 MG TABLET PO SCH (21:42)
[2018-10-11] MEDS: DONEPEZIL 5 MG TABLET PO SCH (21:43)
[2018-10-11] MEDS: ATORVASTATIN 10 MG TABLET PO SCH (21:43)
[2018-10-11] MEDS: risperiDONE 0.25 MG TABLET PO SCH (21:44)
[2018-10-12 08:00] VITALS: BP 131/69
[2018-10-12 08:30] VITALS: BP 131/69
[2018-10-12] MEDS: DIVALPROEX SODIUM 250 MG TABLET.DR PO SCH ×2 (08:31→20:26)
[2018-10-12] MEDS: CEPHALEXIN MONOHYDRATE 500 MG CAPSULE PO SCH ×2 (08:31→20:26)
[2018-10-12] MEDS: MEMANTINE HCL 5 MG TABLET PO SCH ×2 (08:32→20:26)
[2018-10-12] MEDS: VENLAFAXINE XR 75 MG CAP.SR.24H PO SCH (08:32)
--- NOTE | 2018-10-12 09:25 | NUR ---
PT IN HER ROOM, ALERT, CALM AND COOPERATIVE WITH CARE, AMBULATES WITH STEADY GAIT, INTERACTS WITH STAFF WELL, SAFETY PRECAUTIONS OBSERVED. DAUGHTER CALLED AND WAS CONCERNED THAT MOTHER TAKE A BATH SINCE SHE REFUSED LAST SHIFT. SPOKE WITH PT AND MADE AN AGREEMENT THAT SHE WILL BATHE TODAY WILL FOLLOW UP
--- NOTE | 2018-10-12 14:03 | NUR ---
ATTEMPTED TO GIVE BATH SEVERAL TIMES PT STATES SHE IS HAVING SURGERY TODAY
[2018-10-12 14:18] LABS: BASOPHILS % (AUTO) 0.5 % (0.0-2.0); EOSINOPHILS % (AUTO) 0.9 % (0.0-6.0); HEMATOCRIT 44 % (33-45); HEMOGLOBIN 14.8 g/dL (11.5-14.8); LYMPHOCYTES # (AUTO) 2.6 /CMM (0.8-4.8); MEAN CORPUSCULAR HGB CONC 34 g/dl (31.0-36.0); MEAN CORPUSCULAR VOLUME 97 fL (82-100); MONOCYTES # (AUTO) 0.4 /CMM (0.1-1.30); MONOCYTES % (AUTO) 6.9 % (2.0-12.0); NEUTROPHILS # (AUTO) 2.7 /CMM (1.8-8.9); NEUTROPHILS % (AUTO) 46.7 % (43.0-81.0); PLATELET COUNT (AUTO) 223 /CMM (150-450); WHITE BLOOD COUNT (AUTO) 5.8 K/uL (4.3-11.0)
[2018-10-12 14:27] LABS: ALANINE AMINOTRANSFERASE 23 U/L (12-78); ALBUMIN 3.9 g/dL (3.4-5.0); ALKALINE PHOSPHATASE 76 U/L (46-116); ASPARTATE AMINOTRANSFERASE 17 U/L (15-37); BILIRUBIN,TOTAL 0.4 mg/dL (0.2-1.0); CALCIUM, SERUM 9.3 mg/dL (8.5-10.1); CARBON DIOXIDE 30 mmol/L (21-32); CHLORIDE 105 mmol/L (98-107); CREATININE 0.6 mg/dL (0.6-1.3); GLUCOSE 107 mg/dL (74-106); POTASSIUM 4.5 mmol/L (3.5-5.1); SODIUM SERUM 142 mmol/L (136-145); TOTAL PROTEIN, SERUM 7.6 g/dL (6.4-8.2); UREA NITROGEN, BLOOD 14 mg/dL (7-18)
[2018-10-12 16:00] VITALS: BP 127/74
--- NOTE | 2018-10-12 16:00 | NUR ---
Group Note: Pt attended group and was engaged but the pt did not participate. She was actively listening and was engaged but did not want to make any comments. She stated that she was just there to listen.
[2018-10-12 17:00] VITALS: BP 127/74
[2018-10-12 20:00] VITALS: BP 153/68
[2018-10-12] MEDS: risperiDONE 0.25 MG TABLET PO SCH (20:26)
[2018-10-12] MEDS: ZOLPIDEM TARTRATE 5 MG TABLET PO PRN (20:59)
[2018-10-12] MEDS: DONEPEZIL 5 MG TABLET PO SCH (21:00)
[2018-10-12] MEDS: TRAZODONE 50 MG TABLET PO SCH (21:01)
[2018-10-12] MEDS: ATORVASTATIN 10 MG TABLET PO SCH (21:01)
[2018-10-13 08:00] VITALS: BP 133/66
[2018-10-13] MEDS: DIVALPROEX SODIUM 250 MG TABLET.DR PO SCH ×2 (08:36→21:13)
[2018-10-13] MEDS: CEPHALEXIN MONOHYDRATE 500 MG CAPSULE PO SCH (08:36)
[2018-10-13] MEDS: MEMANTINE HCL 5 MG TABLET PO SCH ×2 (08:37→21:13)
[2018-10-13] MEDS: risperiDONE 0.25 MG TABLET PO SCH ×2 (08:37→21:14)
[2018-10-13] MEDS: VENLAFAXINE XR 75 MG CAP.SR.24H PO SCH ×2 (08:37→08:39)
[2018-10-13 16:00] VITALS: BP 140/64
[2018-10-13 20:00] VITALS: BP 125/64
[2018-10-13] MEDS: DONEPEZIL 5 MG TABLET PO SCH (21:13)
[2018-10-13] MEDS: ATORVASTATIN 10 MG TABLET PO SCH (21:13)
[2018-10-13] MEDS: TRAZODONE 50 MG TABLET PO SCH (21:13)
[2018-10-14 08:00] VITALS: BP 120/60
[2018-10-14] MEDS: DIVALPROEX SODIUM 250 MG TABLET.DR PO SCH ×2 (09:02→21:15)
[2018-10-14] MEDS: risperiDONE 0.25 MG TABLET PO SCH ×2 (09:02→21:14)
[2018-10-14] MEDS: VENLAFAXINE XR 75 MG CAP.SR.24H PO SCH (09:02)
[2018-10-14] MEDS: MEMANTINE HCL 5 MG TABLET PO SCH ×2 (09:03→21:15)
[2018-10-14 16:00] VITALS: BP 158/68
[2018-10-14] MEDS: ATORVASTATIN 10 MG TABLET PO SCH (21:14)
[2018-10-14] MEDS: TRAZODONE 50 MG TABLET PO SCH (21:15)
[2018-10-14] MEDS: DONEPEZIL 5 MG TABLET PO SCH (21:26)
[2018-10-14 21:52] VITALS: BP 127/76
[2018-10-15 09:25] VITALS: BP 137/90
[2018-10-15] MEDS ORDERED: VENLAFAXINE XR 37.5 MG CAP.SR.24H PO SCH (09:56)
[2018-10-15] MEDS: MEMANTINE HCL 5 MG TABLET PO SCH ×2 (10:05→21:00)
[2018-10-15] MEDS: DIVALPROEX SODIUM 250 MG TABLET.DR PO SCH ×2 (10:05→21:00)
[2018-10-15] MEDS: risperiDONE 0.25 MG TABLET PO SCH ×2 (10:05→22:00)
[2018-10-15 16:00] VITALS: BP 135/67
[2018-10-15] MEDS: DONEPEZIL 5 MG TABLET PO SCH (22:00)
[2018-10-15] MEDS: ATORVASTATIN 10 MG TABLET PO SCH (22:00)
[2018-10-16 07:00] LABS: BASOPHILS % (AUTO) 0.5 % (0.0-2.0); EOSINOPHILS % (AUTO) 1.6 % (0.0-6.0); HEMATOCRIT 46 % (33-45); HEMOGLOBIN 15.5 g/dL (11.5-14.8); LYMPHOCYTES # (AUTO) 2.1 /CMM (0.8-4.8); LYMPHOCYTES % (AUTO) 37.1 % (20.0-44.0); MEAN CORPUSCULAR HGB CONC 34 g/dl (31.0-36.0); MEAN CORPUSCULAR VOLUME 97 fL (82-100); MONOCYTES # (AUTO) 0.4 /CMM (0.1-1.30); MONOCYTES % (AUTO) 7.9 % (2.0-12.0); NEUTROPHILS # (AUTO) 2.9 /CMM (1.8-8.9); NEUTROPHILS % (AUTO) 52.9 % (43.0-81.0); PLATELET COUNT (AUTO) 220 /CMM (150-450); RED BLOOD CELL COUNT(AUTO) 4.71 MIL/uL (4.0-5.2); WHITE BLOOD COUNT (AUTO) 5.6 K/uL (4.3-11.0)
[2018-10-16 07:21] LABS: VALPROIC ACID 29 ug/mL (50-100)
[2018-10-16 07:29] LABS: ALANINE AMINOTRANSFERASE 34 U/L (12-78); ALKALINE PHOSPHATASE 77 U/L (46-116); ASPARTATE AMINOTRANSFERASE 35 U/L (15-37); BILIRUBIN,TOTAL 0.7 mg/dL (0.2-1.0); CALCIUM, SERUM 9.2 mg/dL (8.5-10.1); CARBON DIOXIDE 27 mmol/L (21-32); CHLORIDE 105 mmol/L (98-107); CREATININE 0.6 mg/dL (0.6-1.3); GLUCOSE 115 mg/dL (74-106); POTASSIUM 4.1 mmol/L (3.5-5.1); SODIUM SERUM 142 mmol/L (136-145); TOTAL PROTEIN, SERUM 7.9 g/dL (6.4-8.2); UREA NITROGEN, BLOOD 15 mg/dL (7-18)
[2018-10-16 08:00] VITALS: BP 153/55
[2018-10-16] MEDS ORDERED: risperiDONE 0.25 MG TABLET PO SCH (09:00)
[2018-10-16] MEDS: MEMANTINE HCL 5 MG TABLET PO SCH ×2 (09:08→21:14)
[2018-10-16] MEDS: DIVALPROEX SODIUM 250 MG TABLET.DR PO SCH ×3 (09:08→16:19)
[2018-10-16] MEDS: risperiDONE 0.25 MG TABLET PO SCH ×2 (12:16→21:16)
[2018-10-16 16:00] VITALS: BP 129/64
[2018-10-16 20:00] VITALS: BP 113/70
[2018-10-16] MEDS: DONEPEZIL 5 MG TABLET PO SCH (21:15)
[2018-10-16] MEDS: ATORVASTATIN 10 MG TABLET PO SCH (21:15)
[2018-10-17 08:00] VITALS: BP 115/57
[2018-10-17] MEDS: DIVALPROEX SODIUM 250 MG TABLET.DR PO SCH ×3 (08:43→16:25)
[2018-10-17] MEDS: MEMANTINE HCL 5 MG TABLET PO SCH ×2 (08:43→21:56)
[2018-10-17] MEDS: risperiDONE 0.25 MG TABLET PO SCH ×3 (08:43→21:56)
--- NOTE | 2018-10-17 15:07 | NUR ---
KEON contacted pts daughter Ursula [phone] and informed her pt will be discharged on Monday10/19/18, SW attempted to coordinate transportation and daughter stated she would not pick pt up due to her aggressive behavior. Daughter asked SW to arrange transportation with assisted living.
--- NOTE | 2018-10-17 15:13 | NUR ---
KEON contacted [facility] [address], [place] [id number] and spoke with Dina who stated she will coordinate poultry picker for pt for Monday10/19/18. Dina stated she would contact KEON to confirm a poultry picker time.
--- NOTE | 2018-10-17 15:23 | NUR ---
GROUP NOTE: SW prompted pt to attend group, pt was laying down in bed with her whole body covered and stated, "I don't want to," in Maori and closed her eyes. Pt appeared to be sleeping.
--- NOTE | 2018-10-17 15:24 | NUR ---
KEON contacted pts daughter Ursula [phone] and informed her [facility] will be arranging transportation for pt. Ursula also asked SW not to provide any discharge information to her siblings. KEON informed her that she has not received a call from any other family member.
[2018-10-17 16:00] VITALS: BP 151/63
[2018-10-17 20:00] VITALS: BP 127/60
[2018-10-17 20:18] VITALS: BP 127/60
[2018-10-17] MEDS: ATORVASTATIN 10 MG TABLET PO SCH (21:56)
[2018-10-17] MEDS: DONEPEZIL 5 MG TABLET PO SCH (21:56)
[2018-10-17] MEDS: ZOLPIDEM TARTRATE 5 MG TABLET PO PRN (22:52)
[2018-10-18] MEDS: LORAZEPAM 0.5 MG TABLET PO PRN (00:06)
[2018-10-18 08:24] VITALS: BP 131/82
[2018-10-18] MEDS: risperiDONE 0.25 MG TABLET PO SCH ×3 (08:43→21:33)
[2018-10-18] MEDS: DIVALPROEX SODIUM 250 MG TABLET.DR PO SCH ×3 (08:43→16:24)
[2018-10-18] MEDS: MEMANTINE HCL 5 MG TABLET PO SCH ×2 (08:43→21:32)
--- NOTE | 2018-10-18 10:51 | NUR ---
KEON contacted [facility] [address] [place] [address] and spoke with Heike who stated pt will be picked up at 10:00am by facility transport. Heike also requested medications and prescription along with clinical information be faxed to [phone].
--- NOTE | 2018-10-18 10:53 | NUR ---
KEON contacted pts daughter Ursula [phone] and informed her [facility] will be [facility] pt up at 10:00am Daughter agreed.
[2018-10-18 16:24] VITALS: BP 140/59
[2018-10-18 20:05] VITALS: BP 144/97
[2018-10-18] MEDS: DONEPEZIL 5 MG TABLET PO SCH (21:32)
[2018-10-18] MEDS: ATORVASTATIN 10 MG TABLET PO SCH (21:32)
[2018-10-19] MEDS: LORAZEPAM 0.5 MG TABLET PO PRN (01:11)
[2018-10-19 08:00] VITALS: BP 128/62
[2018-10-19] MEDS: DIVALPROEX SODIUM 250 MG TABLET.DR PO SCH (08:14)
[2018-10-19] MEDS: MEMANTINE HCL 5 MG TABLET PO SCH (08:14)
[2018-10-19] MEDS: risperiDONE 0.25 MG TABLET PO SCH (08:14)
--- NOTE | 2018-10-19 08:51 | NUR ---
DISCHARGE NOTE: Pt will be discharged at 10:00am to [facility] [address] [place] [address] . Pts daughter Ursula [phone] has been notified and agrees with discharge. KEON faxed clinical information and medication list to Alessandra, fleet administrator [phone]. Pts mood was euthymic with congruent affect. Pt denied suicidal/homicidal ideation and denied visual/auditory hallucinations. Pt will be under the care of Psychiatrist: Dr. Ish Izaguirre Address: [address], [place] [address] and Float Builder: Dr. Amanda Heath Address: [address] [address] . The multidisciplinary exit care form was done, printed, signed, and given to the patient.
--- NOTE | 2018-10-19 10:30 | NUR ---
GPS/RN PT DISCHARGED TO [facility] [address] [place], [place] [address] VIA PRIVATE TRANSPORTATION FROM FACILITY. PT IS AMBULATORY VSS NO DISTRESS/PAIN REPORTED NO SI OR HI AT THE TIME OF DISCHARGE, PROPERTY RETURNED, ISD BAND REMOVED. FULL SKIN ASSESSMENT WAS REFUSED. PT REFUSED TO SIGN DISCHARGE FORMS/EXIT CARE WELL. PRESCRIPTIONS FAXED TO THE FACILITY. PT WAS ACCOMPANIED TO THE CAR .
== END 2018-10-19 10:30 | DRG 885 ==
LOC: ER 18:55 → GPS 10-06 00:09
PROVIDERS: ADMIT Psychiatry & Neurology Psychiatry; ATTEND Nurse Practitioner Acute Care
DX: F25.0 Schizoaffective disorder, bipolar type (principal); F01.50 Vascular dementia, unspecified severity, without behavioral disturbance, psychotic disturbance, mood disturbance, and anxiety; N17.0 Acute kidney failure with tubular necrosis; G93.41 Metabolic encephalopathy; E87.0 Hyperosmolality and hypernatremia; N39.0 Urinary tract infection, site not specified; F29 Unspecified psychosis not due to a substance or known physiological condition; B96.20 Unspecified Escherichia coli [E. coli] as the cause of diseases classified elsewhere; E66.01 Morbid (severe) obesity due to excess calories; E86.1 Hypovolemia; F39 Unspecified mood [affective] disorder; Z73.6 Limitation of activities due to disability; L72.0 Epidermal cyst
CPT/HCPCS: 36415; 70450-TC; 80048-TC; 80053-TC; 80061-TC; 80164-TC; 80305; 81000-TC; 84443-TC; 84484-TC; 85025-TC; 85730-TC; 87081-TC; 87086-TC; 87186-TC; G0480

== ENCOUNTER 2018-10-20 22:46 | Inpatient (IN) | payer MEDICARE, MEDICAID ==
[~2018-10-20] VITALS: Ht 157.5 cm; Wt 54.4 kg
[~2018-10-20 22:46] MED LIST changes: +ATOR10TA PO; -CYAN500T4 PO; -DOCU100C36 PO; -FOLI0.4T2 PO; -LORA-258 PO; +MEMA5TAB PO; -TRAZ-182 PO; -VENL37.55 PO
--- NOTE | 2018-10-20 22:55 | NUR ---
DEANN FONTENOT FROM BOARD AND CARE ON A [place]. LETHARGIC, HARD TO ARROUSE. BREATHING EVEN AND UNLABORED. BROUGHT IN FOR ALTERED MENTAL STATUS THAT USUAL SINCE THIS MORNING. REPORT RECEIVED FROM AMBULANCE THAT PT TOOK A MEDICATION FROM THE [facility] WHICH MADE HER LETHARGIC. MEDLIST WITH PT AND NOTED TO TAKING CLONAZEPAM, RISPERIDONE, AND TRAZADONE. MD AT BEDSIDE. AWAITING ORDERS.
[2018-10-21] MEDS ORDERED: IV NS 0.9% 1,000 ML BAG IV ONE
--- NOTE | 2018-10-21 | NUR ---
IV LINE OBTAINED ON L AC 20G. BLOOD DRAWN AND GIVEN TO LABTECH AT BEDSIDE. EKG IS BEING DONE WELL.
--- NOTE | 2018-10-21 00:02 | NUR ---
TIFFANIE CHAVEZ ([facility]) [phone] CALL FOR ANY UPDATES
[2018-10-21 00:05] LABS: BASOPHILS % (AUTO) 0.7 % (0.0-2.0); EOSINOPHILS % (AUTO) 1.6 % (0.0-6.0); HEMATOCRIT 42 % (33-45); HEMOGLOBIN 13.9 g/dL (11.5-14.8); LYMPHOCYTES # (AUTO) 2.6 /CMM (0.8-4.8); LYMPHOCYTES % (AUTO) 41.7 % (20.0-44.0); MEAN CORPUSCULAR HGB CONC 33 g/dl (31.0-36.0); MEAN CORPUSCULAR VOLUME 97 fL (82-100); MONOCYTES # (AUTO) 0.5 /CMM (0.1-1.30); PLATELET COUNT (AUTO) 178 /CMM (150-450); RED BLOOD CELL COUNT(AUTO) 4.32 MIL/uL (4.0-5.2); WHITE BLOOD COUNT (AUTO) 6.3 K/uL (4.3-11.0)
[2018-10-21 00:16] LABS: CALCIUM, SERUM 8.4 mg/dL (8.5-10.1); CARBON DIOXIDE 29 mmol/L (21-32); CHLORIDE 106 mmol/L (98-107); CREATININE 0.8 mg/dL (0.6-1.3); GLUCOSE 103 mg/dL (74-106); SODIUM SERUM 142 mmol/L (136-145); UREA NITROGEN, BLOOD 20 mg/dL (7-18)
--- NOTE | 2018-10-21 00:17 | NUR ---
PT BEING WHEELED TO RADIOLOGY ON [facility]
[2018-10-21 00:29] LABS: THYROID STIMULATING HORMONE 0.965 uIU/mL (0.358-3.74)
[2018-10-21 00:30] LABS: ALANINE AMINOTRANSFERASE 28 U/L (12-78); ALBUMIN 3.3 g/dL (3.4-5.0); ALCOHOL, BLOOD < 3 mg/dL (0-0); ALKALINE PHOSPHATASE 77 U/L (46-116); ASPARTATE AMINOTRANSFERASE 26 U/L (15-37); BILIRUBIN,DIRECT 0.1 mg/dL (0.0-0.2); BILIRUBIN,TOTAL 0.4 mg/dL (0.2-1.0); TOTAL PROTEIN, SERUM 6.2 g/dL (6.4-8.2)
--- NOTE | 2018-10-21 00:32 | NUR ---
PT BACK FROM CT.
[2018-10-21 00:35] LABS: ACETAMINOPHEN 0 ug/ml (10-30)
--- NOTE | 2018-10-21 01:43 | NUR ---
PT ASSIGNED TO 324-2
--- NOTE | 2018-10-21 02:24 | NUR ---
CALLED FOR DR GARCIA. FELY LOMAX TO REPORT
--- NOTE | 2018-10-21 02:45 | NUR ---
PT TRANSPORTED TO UNIT WITH ACLS PROTOCOL EMT AND RN AT BEDSIDE
[2018-10-21 03:00] VITALS: BP 126/72
--- NOTE | 2018-10-21 03:00 | NUR ---
STATE COMPTROLLERPERFORMANCE TESTER NOTES Patient came to unit via gurney. Patient is alert, oriented x 1-2, speaks primarily in khmer but able to understand simple montenegrin. Tele monitor in place- SR 61. Patient still sleepy but easily arousable and able to follow simple commands. IV access on LAC g#20 intact and patent with no signs of infiltration. Skin assessment done. Multiple bruises on R) arm, chest area and Left leg- pictures attached to chart. Oriented to call light- placed within easy reach. Bed in low, locked position, bed alarm on. Encouraged to call for assistance. Will continue to monitor accordingly
[2018-10-21] MEDS ORDERED: TRAZ-182 PO (03:26)
[2018-10-21] MEDS ORDERED: VENL75TA4 PO (03:26)
[2018-10-21] MEDS ORDERED: RISP0.5T20 PO (03:26)
[2018-10-21] MEDS ORDERED: CLON1TAB12 PO (03:26)
[2018-10-21] MEDS ORDERED: VENL37.510 PO (03:26)
[2018-10-21 04:00] VITALS: BP 126/72
[2018-10-21] MEDS ORDERED: IV D5/0.45 NACL 1,000 ML IV PRN (05:13)
[2018-10-21] MEDS ORDERED: Z GUARD REMEDY 2 OZ OINT TP PRN (05:30)
[2018-10-21] MEDS ORDERED: HYDROCODONE/APAP 5/325MG 1 EACH TABLET PO PRN (05:30)
[2018-10-21] MEDS ORDERED: MAGNESIUM HYDROXIDE 30 ML UDC PO PRN (05:30)
[2018-10-21] MEDS ORDERED: ACETAMINOPHEN 325 MG TABLET PO PRN (05:30)
[2018-10-21] MEDS ORDERED: ONDANSETRON HCL/PF 4 MG/2 ML VIAL IVP PRN (05:30)
[2018-10-21] MEDS ORDERED: MAG HYDROX/AL HYDROX/SIMETH 30 ML UDC PO PRN (05:30)
--- NOTE | 2018-10-21 07:14 | NUR ---
TUMOR REGISTRAR CLOSING NOTES Patient still sleeping in bed, appears comfortable. Breathing even and unlabored. Not in any distress. Peripheral IV infusing at 75mL/hr. Tele monitor in place- sinus aniya 52. All needs attended to and anticipated. Will endorse GLENN to oncoming RN
[2018-10-21] MEDS: PANTOPRAZOLE 40 MG TABLET.DR PO SCH (07:30)
--- NOTE | 2018-10-21 07:30 | NUR ---
TELE/RN NOTE THE PATIENT IS RECEIVED IN BED. PATIENT SLEEPY BUT AROUSABLE. SHE IS ABLE TO MAKE NEEDS KNOWN VERBALLY. IN ROOM AIR AND DENIES SOB. RESPIRATION REGULAR AND UNLABORED. DENIES PAIN. EXTERNAL TELE BOX READING IS S. BRADYCARDIA 55. LAC G 20 PATENT AND D5 1/2 NS INFUSING AT 75ML/HR AND NO S/S INFILTRATION NOTED. BED LOW AND LOCKED. SIDE RAILS UP X3. CALL LIGHT WITHIN REACH. WILL CONTINUE TO MONITOR.
[2018-10-21 08:00] VITALS: BP 98/48
[2018-10-21 08:23] VITALS: BP 98/48
[2018-10-21] MEDS: ENOXAPARIN SODIUM 40 MG/0.4 ML DISP.SYRIN SQ SCH (09:07)
--- NOTE | 2018-10-21 12:03 | NUR ---
MS/RN NOTE RECEIVED REGULAR DIET ORDER FROM DR SR. NOTED AND CARRIED OUT.
--- NOTE | 2018-10-21 13:40 | NUR ---
MS/RN NOTE SITTER ORDER PER DR CORDERO. NOTED AND CARRIED OUT.
[2018-10-21] MEDS: DIVALPROEX SODIUM 125 MG CAP.SPRINK PO SCH ×2 (15:00→17:45)
[2018-10-21] MEDS: risperiDONE 0.25 MG TABLET PO SCH ×2 (15:00→17:45)
--- NOTE | 2018-10-21 15:00 | NUR ---
MS/RN NOTE RECEIVED A CALL FROM [facility] ADMITTING DEPARTMENT AND WAS TOLD THAT A CLINICIAN WOULD COME 10/22/18 TO ASSESS THE PATIENT. CHARGE NURSE IS MADE AWARE.
[2018-10-21 16:00] VITALS: BP 106/60
--- NOTE | 2018-10-21 18:35 | NUR ---
MS/RN CLOSING NOTE THE PATIENT ALERT AND ORIENTED X1. REDIRECTION AND REORIENTATION PROVIDED. THE PATIENT IN ROOM AIR AND SATURATION IS AT 96%. DENIES SOB. RESPIRATION REGULAR AND UNLABORED. DENIES PAIN. THE PATIENT IN NO APPARENT DISTRESS. LAC G 20 PATENT AND IV FLUID INFUSING PER ORDER. NO S/S INFILTRATION NOTED. BED LOW AND LOCKED. SIDE RAILS UP X3. SITTER AT THE BED SIDE. CALL LIGHT WITHIN REACH. WILL ENDORSE TO GEAR GRINDING MACHINE OPERATOR.
--- NOTE | 2018-10-21 19:12 | NUR ---
MS/RN OPENING NOTES RECEIVED PATIENT IN BED, AWAKE, ALERT X2, ABLE TO VERBALIZE NEEDS IN IRISH BUT REPORTED WANT TO GET HOLD OF DAUGHTER . RECEIVED REPORT FROM AM RN FOR GLENN, WILL MONITOR. ON ROOM AIR REQUIRE SITTER PER MD, FOR SAFETY. BED LOCKED CALL LIGHTS WITHIN REACH, WILL MONITOR. RESPIRATIONS EVEN AND UNLABORED.SKIN WARM TO TOUCH.OFFERED FLUIDS AND SNACKS.
[2018-10-21 20:00] VITALS: BP 129/67
--- NOTE | 2018-10-21 20:09 | NUR ---
MS/RN NOTES PATIENT REMOVED IV SITE WAS DISLODGE, TO REINSERT, PATIENT AGREED. WILL MONITOR.
--- NOTE | 2018-10-21 20:24 | NUR ---
MS/RN NOTES PATIENT OFFERED AND PROVIDED SNACKS. SITTER AT BEDSIDE, REFUSED TO HAVE IV REINSERTION AT THIS TIME, WILL TRY AGAIN. DAUGHTER AWARE PATIENT REQUESTING DAUGHTER VICTORIANO. CONTACTED DAUGHTER DALILA MORENO AWARE.
[2018-10-21] MEDS ORDERED: ATORVASTATIN 10 MG TABLET PO SCH (22:00)
--- NOTE | 2018-10-22 00:30 | NUR ---
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 WILL MONITOR. Addendum: 10/22/18 at 0104 by JOHN VARMA RN PLS DISREGARD NOTES FOR DIFFERENT PATIENT
[2018-10-22 06:26] LABS: BASOPHILS % (AUTO) 0.4 % (0.0-2.0); EOSINOPHILS % (AUTO) 1.3 % (0.0-6.0); HEMATOCRIT 41 % (33-45); HEMOGLOBIN 13.6 g/dL (11.5-14.8); LYMPHOCYTES # (AUTO) 1.7 /CMM (0.8-4.8); LYMPHOCYTES % (AUTO) 30.5 % (20.0-44.0); MEAN CORPUSCULAR HGB CONC 34 g/dl (31.0-36.0); MEAN CORPUSCULAR VOLUME 97 fL (82-100); MONOCYTES # (AUTO) 0.5 /CMM (0.1-1.30); MONOCYTES % (AUTO) 8.3 % (2.0-12.0); NEUTROPHILS # (AUTO) 3.4 /CMM (1.8-8.9); NEUTROPHILS % (AUTO) 59.5 % (43.0-81.0); PLATELET COUNT (AUTO) 188 /CMM (150-450); RED BLOOD CELL COUNT(AUTO) 4.17 MIL/uL (4.0-5.2); WHITE BLOOD COUNT (AUTO) 5.7 K/uL (4.3-11.0)
--- NOTE | 2018-10-22 06:44 | NUR ---
MS/RN NOTES PATIENT MONITORED FOR ANY CHANGES, KEPT COMFROTABLE, BED LOCKED, CALL LIGHTS WITHIN REACH. WILL MONITOR. BED LOCKED .
[2018-10-22 06:45] LABS: CALCIUM, SERUM 7.8 mg/dL (8.5-10.1); CARBON DIOXIDE 28 mmol/L (21-32); CHLORIDE 111 mmol/L (98-107); CREATININE 0.6 mg/dL (0.6-1.3); GLUCOSE 102 mg/dL (74-106); MAGNESIUM 2.3 mg/dL (1.8-2.4); PHOSPHORUS 3.7 mg/dL (2.5-4.9); POTASSIUM 3.8 mmol/L (3.5-5.1); SODIUM SERUM 146 mmol/L (136-145); UREA NITROGEN, BLOOD 10 mg/dL (7-18)
--- NOTE | 2018-10-22 07:20 | NUR ---
MS/RN OPENING NOTE THE PATIENT ALERT AND ORIENTED X1. ABLE TO MAKE NEEDS KNOWN VERBALLY. THE PATIENT VERBALIZES WANTING TO GO HOME. DENIES PAIN. RESPIRATION REGULAR AND UNLABORED. IN ROOM AIR AND DENIES SOB. PATIENT HAS NO IV AND DOES NOT WANT TO HAVE IT. DR SR IS MADE AWARE. SITTER AT THE BEDSIDE. BED LOW AND LOCKED. SIDE RAILS UP X2. CALL LIGHT WITHIN REACH. WILL CONTINUE TO MONITOR.
[2018-10-22] MEDS: ENOXAPARIN SODIUM 40 MG/0.4 ML DISP.SYRIN SQ SCH (08:05)
[2018-10-22] MEDS: PANTOPRAZOLE 40 MG TABLET.DR PO SCH (08:05)
[2018-10-22] MEDS: DIVALPROEX SODIUM 125 MG CAP.SPRINK PO SCH ×3 (08:05→17:47)
[2018-10-22] MEDS: risperiDONE 0.25 MG TABLET PO SCH ×3 (08:05→17:47)
[2018-10-22 08:42] VITALS: BP 120/58
[2018-10-22 16:56] VITALS: BP 99/52
--- NOTE | 2018-10-22 18:56 | NUR ---
MS/RN NOTE PATIENT IS GIVEN DISCHARGE EDUCATION. GPS RN MEENAKSHI IS GIVEN REPORT. DAUGHTER TIFFANIE IS AMDE AWARE OF DISCHARGE.
[2018-10-23] MEDS ORDERED: PANT40TA2 PO (07:34)
[2018-10-23] MEDS ORDERED: DIVA125C5 PO (07:34)
[2018-10-23] MEDS ORDERED: MAGN400O6 PO (07:34)
[2018-10-23] MEDS ORDERED: ALLA266C2 TP (07:34)
[2018-10-23] MEDS ORDERED: ONDA4VIA52 IVP (07:34)
[2018-10-23] MEDS ORDERED: HYDR-4384 PO (07:34)
[2018-10-23] MEDS ORDERED: ENOX40DI SQ (07:34)
[2018-10-23] MEDS ORDERED: ACET-868 PO (07:34)
[2018-10-23] MEDS ORDERED: MAG30ORA PO (07:34)
== END 2018-10-22 18:35 | DRG 885 ==
LOC: ER 22:51 → TELE 10-21 02:26 → MED 10-21 08:15
PROVIDERS: ADMIT Family Medicine; ATTEND Family Medicine
DX: F29 Unspecified psychosis not due to a substance or known physiological condition (principal); G93.41 Metabolic encephalopathy; E44.1 Mild protein-calorie malnutrition; E86.0 Dehydration; G30.9 Alzheimer's disease, unspecified; F02.80 Dementia in other diseases classified elsewhere, unspecified severity, without behavioral disturbance, psychotic disturbance, mood disturbance, and anxiety; F01.50 Vascular dementia, unspecified severity, without behavioral disturbance, psychotic disturbance, mood disturbance, and anxiety; F41.9 Anxiety disorder, unspecified; F32.9 Major depressive disorder, single episode, unspecified; Z86.59 Personal history of other mental and behavioral disorders; Z79.899 Other long term (current) drug therapy; R79.89 Other specified abnormal findings of blood chemistry; F25.0 Schizoaffective disorder, bipolar type
CPT/HCPCS: 36415; 70450-TC; 71045-TC; 80048-TC; 80076-TC; 83605-TC; 83735-TC; 84100-TC; 84443-TC; 84484-TC; 85025-TC; 85730-TC; 87040-TC; 87081-TC; 97116-TC; 97530-TC; G0378; G0480; J1650; J3490; J7030

== ENCOUNTER 2018-10-22 19:43 | Inpatient (IN) | payer MEDICARE, MEDICAID ==
[~2018-10-22] VITALS: Ht 149.9 cm; Wt 54.4 kg
[~2018-10-22 19:43] MED LIST changes: +CLON1TAB12 PO; +RISP0.5T20 PO; +TRAZ-182 PO; +VENL37.510 PO; +VENL75TA4 PO
[2018-10-22 20:23] VITALS: BP 113/54
--- NOTE | 2018-10-22 21:00 | NUR ---
GPS RN SURGERY NOTES: ADMITTED AN 88YO FEMALE FROM MED SUR[facility] ON 5150 HOLD FOR GRAVE DISABILITY. PER HOLD, PATIENT IS CONFUSED, DISORIENTED, A POOR HISTORIAN, EASILY AGITATED, PARANOID AND DELUSIONAL. IT WAS ALSO STATED IN THE HOLD THAT PATIENT HAS POOR INSIGHT AND IMPULSE CONTROL AND HER JUDGEMENT IS IMPAIRED. PATIENT IS UNDER THE CARE OF DR. CORDERO AND PRITI, ORNAN FOR PSYCH AND MEDICAL DOCTORS RESPECTIVELY. PATIENT WAS INITIALLY ADMITTED BY DAY SHIFT STAFF. SHE WAS THEN SEEN IN THE HALLWAY HOLDING HER BLANKET CLOSE TO HER. UPON FACE TO FACE EVALUATION PATIENT PRESENTS ALERT AND ORIENTED X1-2, APPEARS VERY CONFUSED, DISORGANIZED, UNKEMPT, DISHEVELED, TALKING ABOUT RANDOM THINGS WITHOUT MAKING ANY SENSE AT ALL. PATIENT SPEAKS [place] HOWEVER UNDERSTANDS [place] TOO. SHE IS NOT ABLE TO CARRY THROUGH A MEANINGFUL CONVERSATION. BELONGINGS AND CONTRABAND WERE DONE BY DAY SHIFT STAFF, ACCOUNTED FOR EVIDENCED IN THE BELONGING LIST. Q15 MIN CHECKS INITIATED. CARE PLAN STARTED.PATIENT'S RIGHTS HANDBOOK PROVIDED, PLACED AT BEDSIDE. GUIDE TO PRESCRIPTION MEDICATION HANDBOOK PROVIDED WELL. PATIENT REFUSED TO HAVE SKIN AND BODY ASSESSMENT. WILL TRY TO DO IT ONCE PATIENT ALLOWS STAFF AND SHOWS LESS FEAR AND ANXIETY. CORRECTIONAL GUARD TRIED TO RE-ORIENT PATIENT MUCH POSSIBLE. PATIENT NEEDS TO BE REDIRECTED MOST OF THE TIME, SHE HAS THE TENDENCY TO WANDER FROM ROOM TO ROOM. WILL MONITOR PATIENT FOR MOOD, SAFETY AND BEHAVIOR. WILL FOLLOW UP WITH MEDICAL DOCTOR FOR MED RECON. WILL ENDORSE PATIENT TO DAY SHIFT STAFF.
[2018-10-22] MEDS ORDERED: ACETAMINOPHEN 325 MG TABLET PO PRN (22:00)
[2018-10-22] MEDS ORDERED: MAG HYDROX/AL HYDROX/SIMETH 30 ML UDC PO PRN (22:00)
[2018-10-22] MEDS ORDERED: MAGNESIUM HYDROXIDE 30 ML UDC PO PRN (22:00)
[2018-10-23] MEDS ORDERED: ACET-868 PO (07:34)
[2018-10-23] MEDS ORDERED: DIVA125C5 PO (07:34)
[2018-10-23] MEDS ORDERED: MAGN400O6 PO (07:34)
[2018-10-23] MEDS ORDERED: ALLA266C2 TP (07:34)
[2018-10-23] MEDS ORDERED: MAG30ORA PO (07:34)
[2018-10-23] MEDS ORDERED: HYDR-4384 PO (07:34)
[2018-10-23] MEDS ORDERED: PANT40TA2 PO (07:34)
[2018-10-23] MEDS ORDERED: ONDA4VIA52 IVP (07:34)
[2018-10-23] MEDS ORDERED: ENOX40DI SQ (07:34)
[2018-10-23 08:00] VITALS: BP 129/61
[2018-10-23 10:19] LABS: CREATININE 0.7 mg/dL (0.6-1.3)
[2018-10-23 10:25] LABS: CHOLESTEROL 97 mg/dL (<200); HDL CHOLESTEROL 50 mg/dL (40-60); LDL 41 mg/dL (0-99); TRIGLYCERIDES 78 mg/dL (30-150)
--- NOTE | 2018-10-23 10:38 | NUR ---
Psychosocial Note: Jacquelin Hung MSW, attest to the patients previous psychosocial information dated 10/08/18 Update On Events leading to Admission and Discharge Plan: Pt has returned to the hospital within 3 days of her previous discharge date. The current plan is to increase the patient on her medications and discharge her to a locked senior living facility. Per daughter/DPOA Ursula [phone] [facility] pt came [facility] did not administer pts medication correctly and thus pts mental state is not stable. The pt appeared to be in a hypomanic mood with an irritable affect and disorganized speech. Pt is confused, disoriented, and delusional; thinking she was kidnapped and that her family is in danger. Pt appeared to be ambulatory, well-groomed and appropriately dressed. Pt is currently denying any suicidal or homicidal ideation as well as any visual or auditory hallucinations. SW will work with the pts daughter and the MD regarding appropriate discharge planning. SW will form a safe and proper discharge.
--- NOTE | 2018-10-23 10:50 | NUR ---
KEON contacted pts daughter/DPOA Ursula [phone] to discuss pts current admission and discharge plan. Per daughter she stated she wishes for pt to be discharged to a locked SNF as [facility] palace [facility] pt. KEON provided daughter with [facility] and [facility] contact information so she can tour and see if those facilities fit pts needs. Daughter stated she would visit both facilities and inform KEON if she liked them or not.
--- NOTE | 2018-10-23 12:01 | NUR ---
Pt received a call from pts daughter/BRANDIE Vergara [phone] stating she contacted [facility] who stated they currently have beds available and also informed SW that she also would like SW to fax a referral to [facility]. Daughter also requested Dr. Rhoades contact her to discuss pts treatment plan and best discharge option since Dr. Rhoades has been treating pt psychiatrically. SW informed her that she would notify Dr. Rhoades to give her a call.
--- NOTE | 2018-10-23 14:20 | NUR ---
Group Note: Pt unable to participate in group due to being cognitively impaired. Pt wonders and is unable to be in a group setting or follow directions.
[2018-10-23] MEDS: DIVALPROEX SODIUM 125 MG CAP.SPRINK PO SCH ×2 (15:20→18:00)
[2018-10-23] MEDS: risperiDONE 0.25 MG TABLET PO SCH ×2 (15:20→18:00)
--- NOTE | 2018-10-23 15:40 | NUR ---
SW received a call from pts daughter/DPOA Ursula [phone] stating that after touring [facility] she feels it is the right facility for pt and stated she wants SW to fax a referral there. SW will fax referral.
[2018-10-23 16:27] VITALS: BP 141/73
[2018-10-23 19:55] VITALS: BP 135/98
[2018-10-23] MEDS: TEMAZEPAM 7.5 MG CAPSULE PO PRN (21:54)
[2018-10-23] MEDS: LORAZEPAM 0.5 MG TABLET PO PRN (22:23)
[2018-10-24 08:00] VITALS: BP 111/51
[2018-10-24] MEDS: DIVALPROEX SODIUM 125 MG CAP.SPRINK PO SCH ×3 (09:03→16:05)
[2018-10-24] MEDS: risperiDONE 0.25 MG TABLET PO SCH ×3 (09:03→16:05)
--- NOTE | 2018-10-24 09:11 | NUR ---
KEON faxed SNF referral to [facility] Address: [address], [place] [address] for review.
--- NOTE | 2018-10-24 15:32 | NUR ---
GROUP NOTE: Pt unable to participate in group due to being cognitively impaired. Pt wonders and is unable to be in a group setting or follow directions.
--- NOTE | 2018-10-24 15:34 | NUR ---
SW received a call from charito Mendoza at [facility] Address: [address] [place] [address] stating pt has been accepted to the facility.
[2018-10-24 16:00] VITALS: BP 146/53
[2018-10-24 19:00] LABS: APPEARANCE,URINE SL CLOUDY (CLEAR); BILIRUBIN,URINE NEGATIVE (NEGATIVE); BLOOD, URINE TRACE-INTA Ery/uL (NEGATIVE); COLOR,URINE YELLOW (YELLOW); KETONES,URINE NEGATIVE (NEGATIVE); LEUKOCYTE ESTERASE ,URINE 3+ (NEGATIVE); NITRITE, URINE NEGATIVE (NEGATIVE); PH,URINE 6.5 (5.0-8.0); PROTEIN,URINE NEGATIVE (NEGATIVE); UGLUCOSE NEGATIVE (NEGATIVE); UROBILINOGEN,URINE 0.2 EU/dL (0.2)
[2018-10-24 19:10] LABS: BACTERIA,URINE Few /HPF (None Seen); SQUAMOUS EPITHELIAL CELL,UR Moderate /HPF (None Seen); WBC,URINE 21-50 /HPF (0-3)
--- NOTE | 2018-10-24 19:40 | NUR ---
RN-NOTE: RELAYED PRELIMINARY URINE LAB RESULTS TO DR. SALAZAR WITH NEW ORDER OF KELFEX NOTED AND CARRIED OUT.
[2018-10-24 20:00] VITALS: BP 116/70
[2018-10-24] MEDS: CEPHALEXIN MONOHYDRATE 500 MG CAPSULE PO SCH (20:09)
[2018-10-24] MEDS: MEMANTINE HCL 5 MG TABLET PO SCH (20:10)
[2018-10-24] MEDS: ATORVASTATIN 10 MG TABLET PO SCH (21:26)
[2018-10-24] MEDS: DONEPEZIL 5 MG TABLET PO SCH (21:26)
[2018-10-24] MEDS: TEMAZEPAM 7.5 MG CAPSULE PO PRN (21:38)
[2018-10-25 07:18] LABS: ALANINE AMINOTRANSFERASE 55 U/L (12-78); ALBUMIN 3.3 g/dL (3.4-5.0); ALKALINE PHOSPHATASE 81 U/L (46-116); ASPARTATE AMINOTRANSFERASE 45 U/L (15-37); BILIRUBIN,TOTAL 0.4 mg/dL (0.2-1.0); CALCIUM, SERUM 8.7 mg/dL (8.5-10.1); CARBON DIOXIDE 30 mmol/L (21-32); CHLORIDE 108 mmol/L (98-107); CREATININE 0.6 mg/dL (0.6-1.3); GLUCOSE 100 mg/dL (74-106); POTASSIUM 4.2 mmol/L (3.5-5.1); SODIUM SERUM 144 mmol/L (136-145); TOTAL PROTEIN, SERUM 6.6 g/dL (6.4-8.2); UREA NITROGEN, BLOOD 12 mg/dL (7-18)
[2018-10-25 07:19] LABS: BASOPHILS % (AUTO) 0.7 % (0.0-2.0); EOSINOPHILS % (AUTO) 2.2 % (0.0-6.0); HEMATOCRIT 43 % (33-45); HEMOGLOBIN 14.3 g/dL (11.5-14.8); LYMPHOCYTES # (AUTO) 2.4 /CMM (0.8-4.8); LYMPHOCYTES % (AUTO) 45.6 % (20.0-44.0); MEAN CORPUSCULAR HGB CONC 33 g/dl (31.0-36.0); MEAN CORPUSCULAR VOLUME 97 fL (82-100); MONOCYTES # (AUTO) 0.4 /CMM (0.1-1.30); MONOCYTES % (AUTO) 7.8 % (2.0-12.0); NEUTROPHILS # (AUTO) 2.3 /CMM (1.8-8.9); NEUTROPHILS % (AUTO) 43.7 % (43.0-81.0); PLATELET COUNT (AUTO) 199 /CMM (150-450); RED BLOOD CELL COUNT(AUTO) 4.42 MIL/uL (4.0-5.2); WHITE BLOOD COUNT (AUTO) 5.3 K/uL (4.3-11.0)
[2018-10-25 07:31] LABS: VALPROIC ACID 31 ug/mL (50-100)
[2018-10-25 08:00] VITALS: BP 136/64
[2018-10-25] MEDS: DIVALPROEX SODIUM 125 MG CAP.SPRINK PO SCH ×3 (08:14→16:46)
[2018-10-25] MEDS: CEPHALEXIN MONOHYDRATE 500 MG CAPSULE PO SCH ×2 (08:14→16:46)
[2018-10-25] MEDS: risperiDONE 0.25 MG TABLET PO SCH ×3 (08:14→16:46)
[2018-10-25] MEDS: MEMANTINE HCL 5 MG TABLET PO SCH ×2 (08:14→20:46)
[2018-10-25 16:20] VITALS: BP 115/67
[2018-10-25 20:00] VITALS: BP_SYST 122; BP_DIAS 62; BP_DIAS 68
[2018-10-25] MEDS: DONEPEZIL 5 MG TABLET PO SCH (22:47)
[2018-10-25] MEDS: ATORVASTATIN 10 MG TABLET PO SCH (22:47)
[2018-10-26 08:00] VITALS: BP 110/64
--- NOTE | 2018-10-26 09:57 | NUR ---
GROUP NOTE: Pt was present but was unable to participate in group due to being cognitively impaired. Pt wonders and is unable to be in a group setting or follow directions. Addendum: 10/26/18 at 0959 by ABDIEL HERBERT GROUP WAS HELD ON 10/25/18 at 2:00pm.
[2018-10-26] MEDS: CEPHALEXIN MONOHYDRATE 500 MG CAPSULE PO SCH ×2 (10:29→18:07)
[2018-10-26] MEDS: risperiDONE 0.25 MG TABLET PO SCH ×3 (10:29→18:07)
[2018-10-26] MEDS: MEMANTINE HCL 5 MG TABLET PO SCH ×2 (10:29→21:19)
[2018-10-26] MEDS: DIVALPROEX SODIUM 125 MG CAP.SPRINK PO SCH ×3 (10:29→18:07)
--- NOTE | 2018-10-26 14:40 | NUR ---
Group Note: Pt was encouraged to participate in group therapy on 10/26/18 at 1:30PM but was unable to participate in group due to being cognitively impaired. Pt wonders and is unable to be in a group setting or follow directions.
[2018-10-26 16:00] VITALS: BP 98/62
--- NOTE | 2018-10-26 16:59 | NUR ---
no complaints offered,up and about.no distress.
[2018-10-26] MEDS: LORAZEPAM 0.5 MG TABLET PO PRN (19:25)
[2018-10-26 20:00] VITALS: BP 106/59
[2018-10-26] MEDS: DONEPEZIL 5 MG TABLET PO SCH (21:19)
[2018-10-26] MEDS: ATORVASTATIN 10 MG TABLET PO SCH (21:19)
[2018-10-27 08:00] VITALS: BP 152/67
[2018-10-27] MEDS: DIVALPROEX SODIUM 125 MG CAP.SPRINK PO SCH ×3 (08:03→16:43)
[2018-10-27] MEDS: risperiDONE 0.25 MG TABLET PO SCH ×3 (08:03→16:43)
[2018-10-27] MEDS: CEPHALEXIN MONOHYDRATE 500 MG CAPSULE PO SCH ×2 (08:04→16:44)
[2018-10-27] MEDS: MEMANTINE HCL 5 MG TABLET PO SCH ×2 (08:04→21:12)
[2018-10-27 16:00] VITALS: BP 139/66
[2018-10-27 19:43] VITALS: BP 148/69
[2018-10-27] MEDS: LORAZEPAM 0.5 MG TABLET PO PRN (20:05)
[2018-10-27] MEDS: DONEPEZIL 5 MG TABLET PO SCH (21:12)
[2018-10-27] MEDS: ATORVASTATIN 10 MG TABLET PO SCH (21:12)
[2018-10-28 08:00] VITALS: BP 103/60
[2018-10-28] MEDS: risperiDONE 0.25 MG TABLET PO SCH ×3 (08:06→16:49)
[2018-10-28] MEDS: CEPHALEXIN MONOHYDRATE 500 MG CAPSULE PO SCH ×2 (08:06→16:49)
[2018-10-28] MEDS: DIVALPROEX SODIUM 125 MG CAP.SPRINK PO SCH ×3 (08:06→16:49)
[2018-10-28] MEDS: MEMANTINE HCL 5 MG TABLET PO SCH ×2 (08:06→21:12)
[2018-10-28 16:00] VITALS: BP 125/57
[2018-10-28 20:00] VITALS: BP 114/53
[2018-10-28] MEDS: DONEPEZIL 5 MG TABLET PO SCH (21:12)
[2018-10-28] MEDS: ATORVASTATIN 10 MG TABLET PO SCH (21:12)
[2018-10-28 22:30] VITALS: BP 115/65
[2018-10-28] MEDS: LORAZEPAM 0.5 MG TABLET PO PRN (22:38)
[2018-10-29 08:00] VITALS: BP 108/67
[2018-10-29] MEDS: CEPHALEXIN MONOHYDRATE 500 MG CAPSULE PO SCH (09:00)
--- NOTE | 2018-10-29 10:24 | NUR ---
Pt received a call from pts daughter/DPOA Ursula [phone] regarding discharge status, SW informed her pt has a tentative discharge for Monday10/30/18 to [facility]. Daughter agreed with discharge, SW will contact daughter to confirm discharge before the end of the day.
[2018-10-29] MEDS: DIVALPROEX SODIUM 125 MG CAP.SPRINK PO SCH ×3 (10:50→16:19)
[2018-10-29] MEDS: risperiDONE 0.25 MG TABLET PO SCH ×3 (10:50→16:20)
[2018-10-29] MEDS: MEMANTINE HCL 5 MG TABLET PO SCH ×2 (10:50→20:30)
--- NOTE | 2018-10-29 14:50 | NUR ---
SW contacted pts daughter/DPOA Ursula [phone] to confirm pts discharge tomorrow 10/30/18 to [facility]. Daughter agreed with discharge plan.
--- NOTE | 2018-10-29 15:30 | NUR ---
GROUP NOTE: Pt was present but was unable to participate in group due to being cognitively impaired. Pts speech is disorganized and her thinking is confused/disoriented.
[2018-10-29 16:00] VITALS: BP 119/58
--- NOTE | 2018-10-29 18:26 | NUR ---
RN NOTES PT NOTED WITH SOME PERIODS OF CONFUSION, REORIENTED NEEDED. COOPERATIVE AND MED COMPLAINT EXCEPT REFUSED KEFLEX IN AM. INTERACTS WHEN PROMPTED. ANXIOUS AT TIMES; WANDERS BUT NO SIGNS OF DELUSION OR SUICIDAL IDEATION NOTED.
[2018-10-29 19:52] VITALS: BP 137/71
[2018-10-29] MEDS ORDERED: risperiDONE 0.25 MG TABLET PO SCH (20:00)
[2018-10-29] MEDS: DONEPEZIL 5 MG TABLET PO SCH (21:19)
[2018-10-29] MEDS: ATORVASTATIN 10 MG TABLET PO SCH (21:19)
[2018-10-29] MEDS: TEMAZEPAM 7.5 MG CAPSULE PO PRN (21:42)
[2018-10-30 07:52] LABS: BASOPHILS % (AUTO) 0.8 % (0.0-2.0); HEMATOCRIT 42 % (33-45); HEMOGLOBIN 14.3 g/dL (11.5-14.8); LYMPHOCYTES % (AUTO) 33.6 % (20.0-44.0); MEAN CORPUSCULAR HGB CONC 34 g/dl (31.0-36.0); MEAN CORPUSCULAR VOLUME 97 fL (82-100); MONOCYTES # (AUTO) 0.5 /CMM (0.1-1.30); MONOCYTES % (AUTO) 9.4 % (2.0-12.0); NEUTROPHILS # (AUTO) 3.2 /CMM (1.8-8.9); NEUTROPHILS % (AUTO) 54.2 % (43.0-81.0); PLATELET COUNT (AUTO) 197 /CMM (150-450); RED BLOOD CELL COUNT(AUTO) 4.36 MIL/uL (4.0-5.2); WHITE BLOOD COUNT (AUTO) 5.8 K/uL (4.3-11.0)
[2018-10-30 08:00] VITALS: BP 111/55
[2018-10-30] MEDS: MEMANTINE HCL 5 MG TABLET PO SCH (08:00)
[2018-10-30] MEDS: DIVALPROEX SODIUM 125 MG CAP.SPRINK PO SCH (08:01)
[2018-10-30] MEDS: risperiDONE 0.25 MG TABLET PO SCH (08:01)
[2018-10-30 08:12] LABS: VALPROIC ACID 34 ug/mL (50-100)
[2018-10-30 08:15] LABS: ALANINE AMINOTRANSFERASE 32 U/L (12-78); ALBUMIN 3.5 g/dL (3.4-5.0); ALKALINE PHOSPHATASE 85 U/L (46-116); ASPARTATE AMINOTRANSFERASE 23 U/L (15-37); BILIRUBIN,TOTAL 0.5 mg/dL (0.2-1.0); CALCIUM, SERUM 8.8 mg/dL (8.5-10.1); CARBON DIOXIDE 28 mmol/L (21-32); CHLORIDE 107 mmol/L (98-107); CREATININE 0.5 mg/dL (0.6-1.3); GLUCOSE 101 mg/dL (74-106); SODIUM SERUM 145 mmol/L (136-145); UREA NITROGEN, BLOOD 15 mg/dL (7-18)
--- NOTE | 2018-10-30 12:16 | NUR ---
DISCHARGE NOTE: Pt is discharging at 1230pm to [facility] ([facility]) Address: [address] [place] [address] via [facility]. Pts daughter Ursula [phone] has been notified and agrees with discharge. Pts mood is euthymic with congruent affect. Pt denied visual/auditory hallucinations and denied suicidal/homicidal ideation. Pt will be under the care of Psychiatrist: Dr. Kateryna Rhoades [address], [place] [address] [phone] and Diecast Machine Operator: Dr. Janes Love Address: [address], [place] [address] . The multidisciplinary exitcare form was done, printed, signed, and given to the patient.
--- NOTE | 2018-10-30 12:55 | NUR ---
GPS/RN PT D/C TO [facility] VIA AMBULANCE. REPORT GIVEN TO MERI MCQUEEN. PT IS AMBULATORY NO SI OR HI AT THE TIME OF DISCHARGE. PROPERTY RETURNED AND ID BAND REMOVED. EXIT CARE INSTRUCTIONS PROVIDED AND MEDS LIST /H&P SENT ALONG WITH THE PATIENT TO ACCEPTING FACILITY.
== END 2018-10-30 13:00 | DRG 885 ==
LOC: GPS 19:43
PROVIDERS: ADMIT Psychiatry & Neurology Psychosomatic Medicine; ATTEND Nurse Practitioner Acute Care
DX: F25.0 Schizoaffective disorder, bipolar type (principal); F01.50 Vascular dementia, unspecified severity, without behavioral disturbance, psychotic disturbance, mood disturbance, and anxiety; N39.0 Urinary tract infection, site not specified; F29 Unspecified psychosis not due to a substance or known physiological condition; F41.9 Anxiety disorder, unspecified; B96.20 Unspecified Escherichia coli [E. coli] as the cause of diseases classified elsewhere; F02.80 Dementia in other diseases classified elsewhere, unspecified severity, without behavioral disturbance, psychotic disturbance, mood disturbance, and anxiety; G30.9 Alzheimer's disease, unspecified; F39 Unspecified mood [affective] disorder; F32.9 Major depressive disorder, single episode, unspecified
CPT/HCPCS: 36415; 80053-TC; 80061-TC; 80164-TC; 81000-TC; 82565-TC; 85025-TC; 87086-TC; 87186-TC